=== PATIENT | female | born 1945 | race Caucasian/White ===

== ENCOUNTER → 2016-12-13 | Outpatient (CLI) | payer MEDICARE ==
[2016-12-13 08:54] LABS: Anion Gap 12 mmol/L; Blood Urea Nitrogen 17 mg/dL (7-17); Calcium 9.1 mg/dL (8.4-10.2); Carbon Dioxide 26 mmol/L (22-30); Chloride 103 mmol/L (98-107); Glucose 168 mg/dL (74-99); Non-African American GFR(MDRD) >60 (>60 ml/min/1.73 sqM); Potassium 4.2 mmol/L (3.5-5.1); Sodium 141 mmol/L (137-145)
[2016-12-13 10:57] LABS: Hemoglobin A1C 7.5 % (4.2-6.1)
== END ==
LOC: LABWHC1 08:17
PROVIDERS: ATTEND Internal Medicine
DX: E11.21 Type 2 diabetes mellitus with diabetic nephropathy (principal)
CPT/HCPCS: 36415; 80048; 83036

== ENCOUNTER → 2017-02-25 | Outpatient (CLI) | payer MEDICARE ==
[2017-02-25 09:06] LABS: Anion Gap 15 mmol/L; Blood Urea Nitrogen 18 mg/dL (7-17); Calcium 9.2 mg/dL (8.4-10.2); Carbon Dioxide 23 mmol/L (22-30); Chloride 104 mmol/L (98-107); Glucose 168 mg/dL (74-99); Non-African American GFR(MDRD) >60 (>60 ml/min/1.73 sqM); Sodium 142 mmol/L (137-145)
[2017-02-25 12:11] LABS: Hemoglobin A1C 8.9 % (4.2-6.1)
== END | disposition home or self-care (01) ==
LOC: LABWHC1 07:04
PROVIDERS: ATTEND Internal Medicine
DX: E11.40 Type 2 diabetes mellitus with diabetic neuropathy, unspecified (principal)
CPT/HCPCS: 36415; 80048; 82043; 83036

== ENCOUNTER → 2017-04-27 | Outpatient (CLI) | payer MEDICARE ==
[2017-04-27 08:37] LABS: Anion Gap 14 mmol/L; Blood Urea Nitrogen 13 mg/dL (7-17); Carbon Dioxide 23 mmol/L (22-30); Chloride 104 mmol/L (98-107); Glucose 194 mg/dL (74-99); Non-African American GFR(MDRD) >60 (>60 ml/min/1.73 sqM); Potassium 4.2 mmol/L (3.5-5.1); Sodium 141 mmol/L (137-145)
[2017-04-27 10:24] LABS: Hemoglobin A1C 9.2 % (4.2-6.1)
== END | disposition home or self-care (01) ==
LOC: LABWHC1 08:00
PROVIDERS: ATTEND Internal Medicine
DX: E11.65 Type 2 diabetes mellitus with hyperglycemia (principal)
CPT/HCPCS: 36415; 80048; 83036

== ENCOUNTER → 2017-06-08 | Outpatient (CLI) | payer MEDICARE ==
[2017-06-08 09:32] LABS: Anion Gap 9 mmol/L; Blood Urea Nitrogen 16 mg/dL (7-17); Calcium 9.3 mg/dL (8.4-10.2); Carbon Dioxide 26 mmol/L (22-30); Chloride 105 mmol/L (98-107); Glucose 167 mg/dL (74-99); Non-African American GFR(MDRD) >60 (>60 ml/min/1.73 sqM); Potassium 4.1 mmol/L (3.5-5.1); Sodium 140 mmol/L (137-145)
[2017-06-08 14:44] LABS: Hemoglobin A1C 8.7 % (4.2-6.1)
== END | disposition home or self-care (01) ==
LOC: LABWHC1 08:05
PROVIDERS: ATTEND Internal Medicine
DX: E11.65 Type 2 diabetes mellitus with hyperglycemia (principal)
CPT/HCPCS: 36415; 80048; 83036

== ENCOUNTER → 2017-12-06 | Outpatient (CLI) | payer MEDICARE ==
[2017-12-06 09:20] LABS: Calcium 9.3 mg/dL (8.4-10.2); Potassium 3.8 mmol/L (3.5-5.1)
[2017-12-06 18:57] LABS: Hemoglobin A1C 8.4 % (4.0-6.0)
== END | disposition home or self-care (01) ==
LOC: LABWHC1 08:13
PROVIDERS: ATTEND Internal Medicine
DX: E11.65 Type 2 diabetes mellitus with hyperglycemia (principal)
CPT/HCPCS: 36415; 80048; 82043; 82570; 83036

== ENCOUNTER 2018-06-09 02:00 | Inpatient (IN) | payer MEDICARE ==
[2018-06-09] MEDS ORDERED: ONDANSETRON 4 MG/2 ML VIAL IVP PRN (03:14)
[2018-06-09] MEDS ORDERED: NALOXONE 0.4 MG/ML 1 ML VIAL IV PRN (03:14)
[2018-06-09] MEDS ORDERED: SODIUM CHLORIDE 0.9% 1,000 ML IV SCH (03:15)
--- NOTE | 2018-06-09 03:27 | ED ---
Lower Extremity Injury HPI - General Chief Complaint: Extremity Injury, Lower Stated Complaint: Broken Ankle Time Seen by Provider: 06/09/18 02:48 Source: patient Mode of arrival: wheelchair Limitations: no limitations - History of Present Illness Initial Comments: 73-year-old female patient with past medical history significant for diabetes mellitus presents to the emergency department today as a transfer from [facility] in [place] after sustaining an ankle fracture earlier this afternoon. Patient states that she had a slip and fall on wet pavement which caused her ankle to twist. Patient states that the ankle was dislocated, they did perform conscious sedation with reduction at their facility. Patient is from this area and requested to be transferred here for orthopedic surgery. Patient has been treated by Dr. Beal at [facility] in the past. Patient arrives with a splint to the right ankle. Patient states her pain is currently under control. She denies any numbness or tingling to the foot. Patient denies hitting her head or losing consciousness during the fall. Denies any head, neck , or back pain. Denies any other injuries. Patient denies any chest pain, shortness of breath, dizziness, weakness, abdominal pain, nausea, vomiting, or difficulties with bowel movements or urination. - Related Data Home Medications Medication Instructions Recorded Confirmed Aspirin 81 mg PO DAILY 06/09/18 06/09/18 Atorvastatin [Lipitor] 20 mg PO DAILY 06/09/18 06/09/18 Hydrochlorothiazide 25 mg PO DAILY 06/09/18 06/09/18 Losartan Potassium [Cozaar] 25 mg PO DAILY 06/09/18 06/09/18 Pioglitazone [Actos] 15 mg PO DAILY 06/09/18 06/09/18 metFORMIN HCL [Glucophage] 1,000 mg PO HS 06/09/18 06/09/18 metFORMIN HCL [Glucophage] 500 mg PO DAILY 06/09/18 06/09/18 Allergies Allergy/AdvReac Type Severity Reaction Status Date / Time Corticosteroids Allergy Rapid Verified 06/09/18 02:10 (Glucocorticoids) Heart Rate Review of Systems ROS Statement: Those systems with pertinent positive or pertinent negative responses have been documented in the HPI. ROS Other: All systems not noted in ROS Statement are negative. Past Medical History Past Medical History: Diabetes Mellitus History of Any Multi-Drug Resistant Organisms: None Reported Past Surgical History: Bowel Resection, Orthopedic Surgery Past Psychological History: No Psychological Hx Reported Smoking Status: Never smoker Past Alcohol Use History: None Reported Past Drug Use History: None Reported General Exam Limitations: no limitations General appearance: alert, in no apparent distress, other (This is a well- developed, well-nourished elderly female patient in no acute distress. Vital signs upon presentation are temperature 98.7F, pulse 100, respirations 18, blood pressure 178/87, pulse ox 99% on room air.) Eye exam: Present: normal appearance, PERRL, EOMI. Absent: scleral icterus, conjunctival injection, periorbital swelling ENT exam: Present: normal exam, normal oropharynx, mucous membranes moist Respiratory exam: Present: normal lung sounds bilaterally. Absent: respiratory distress, wheezes, rales, rhonchi, stridor Cardiovascular Exam: Present: regular rate, normal rhythm, normal heart sounds. Absent: systolic murmur, diastolic murmur, rubs, gallop, clicks GI/Abdominal exam: Present: soft, normal bowel sounds. Absent: distended, tenderness, guarding, rebound, rigid Extremities exam: Present: normal capillary refill, other (Patient has posterior and stirrup OCL splint to the right ankle. Toes are pink, warm, and dry. Cap refill is less than 3 seconds. Pedal pulse is 2+. ). Absent: normal inspection, full ROM, tenderness, pedal edema, joint swelling, calf tenderness Neurological exam: Present: alert, oriented X3, CN II-XII intact Psychiatric exam: Present: normal affect, normal mood Skin exam: Present: warm, dry, intact, normal color. Absent: rash Course Vital Signs 06/09/18 02:06 Temperature 98.7 F Pulse Rate 100 Respiratory 18 Rate Blood Pressure 178/87 O2 Sat by Pulse 99 Oximetry Medical Decision Making - Medical Decision Making 73-year-old female patient presented to the emergency department as a transfer from [facility] in [place] for surgical evaluation of right ankle fracture. Upon arrival patient was immobilized in a posterior and stirrup OCL splint. Neurovascular status intact, pain is controlled. Presurgical labs, EKG, and x- ray were obtained. Pain management provided. The patient will be admitted to Dr. Kelsey. Dr. Braxton is put on for medical management. Patient is NPO. Patient is aware of plan and is in agreement. - EKG Data -: EKG Interpreted by Me EKG Comments: EKG obtained at 03 43 shows normal sinus rhythm with a ventricular rate of 90, NJ interval 164, QRS duration 90, QT 318, QTC 389. No evidence of ST elevation or depression. - Radiology Data Radiology results: report reviewed, image reviewed Frontal view of the chest is obtained. Lungs and pleura show mild left basilar atelectasis. No focal consolidation. No pleural effusion or pneumothorax. Heart mediastinum are normal no cardiomegaly. Soft tissues unremarkable. Bones showed no acute fracture. There is degenerative change of the acromioclavicular joint. Upper abdomen is normal. Impression by Dr. Latham shows mild left basilar atelectasis. No acute disease. Images reviewed from outside facility. There does appear to be a comminuted displaced trimalleolar fracture of the right ankle. There does appear to be reduction of the previous ankle dislocation. Disposition Clinical Impression: Closed trimalleolar fracture of right ankle, Dislocation of right ankle joint Disposition: ADMITTED IP TO THIS [facility] Condition: Serious Decision to Admit Reason: Admit from EC Decision Date: 06/09/18 Decision Time: 03:29
--- NOTE | 2018-06-09 03:44 | XR ---
EXAM: XR Chest, 1 View CLINICAL HISTORY: ITS.REASON XR Reason: Pain TECHNIQUE: Frontal view of the chest. COMPARISON: None FINDINGS: Hardware: None. Lungs/pleura: Mild left basilar atelectasis. No focal consolidation. No pleural effusion or pneumothorax. Heart/mediastinum: Normal. No cardiomegaly. Soft tissues: Unremarkable. Bones: No acute fracture. Degenerative changes of the acromioclavicular joint. Upper abdomen: Normal. IMPRESSION: Mild left basilar atelectasis. No acute disease.
[2018-06-09 03:55] LABS: Basophils % (A) 0 %; Eosinophils # (A) 0.1 k/uL (0-0.7); Eosinophils % (A) 1 %; HCT 40.6 % (34.0-46.0); HGB 12.9 gm/dL (11.4-16.0); Lymphocytes # (A) 1.9 k/uL (1.0-4.8); Lymphocytes % (A) 16 %; MCHC 31.7 g/dL (31.0-37.0); MCV 91.5 fL (80.0-100.0); Mean Platelet Volume 7.6; Monocytes # (A) 0.7 k/uL (0-1.0); Monocytes % (A) 6 %; Neutrophils # (A) 8.8 k/uL (1.3-7.7); Neutrophils % (A) 76 %; Platelet Count 262 k/uL (150-450); RBC 4.44 m/uL (3.80-5.40); RDW 13.7 % (11.5-15.5); WBC 11.6 k/uL (3.8-10.6)
[2018-06-09 04:04] LABS: ALT 24 U/L (9-52); AST 25 U/L (14-36); Albumin 3.3 g/dL (3.5-5.0); Alkaline Phosphatase 82 U/L (38-126); Anion Gap 9 mmol/L; Blood Urea Nitrogen 20 mg/dL (7-17); Calcium 8.5 mg/dL (8.4-10.2); Carbon Dioxide 22 mmol/L (22-30); Chloride 105 mmol/L (98-107); Glucose 192 mg/dL (74-99); Potassium 3.7 mmol/L (3.5-5.1); Sodium 136 mmol/L (137-145); Total Bilirubin 0.7 mg/dL (0.2-1.3); Total Protein 5.9 g/dL (6.3-8.2)
[2018-06-09 04:55] VITALS: BMI 39.9
[2018-06-09 04:57] LABS: Appearance,Urine Clear (Clear); Bilirubin,Urine Negative (Negative); Blood,Urine Negative (Negative); Color,Urine Yellow; Glucose,Urine (UA) 3+ (Negative); Leukocyte Esterase,Urine Negative (Negative); Nitrite,Urine Negative (Negative); PH, Urine 5.5 (5.0-8.0); Protein,Urine Trace (Negative); Specific Gravity,Urine 1.023 (1.001-1.035); Urobilinogen,Urine <2.0 mg/dL (<2.0)
[2018-06-09 05:12] LABS: Partial Thromboplastin Time 23.6 sec (22.0-30.0); Prothrombin Time 10.1 sec (9.0-12.0)
[2018-06-09 05:59] LABS: Ketones,Urine 2+ (Negative)
[2018-06-09] MEDS: MORPHINE SULFATE 4 MG/ML SYRINGE IV PRN (06:09)
[2018-06-09] MEDS ORDERED: MELATONIN 5 MG TABLET PO PRN (08:15)
--- NOTE | 2018-06-09 08:25 | P.CONS ---
History of Present Illness - Reason for Consult Consult date: 06/09/18 hypertension Requesting physician: Jaron Kelsey - Chief Complaint ankle pain - History of Present Illness patient is a 73-year-old female with a past medical history of hypertension, type 2 diabetes, dyslipidemia and arthritis who initially presented as a transfer from an outside hospital in [place]. She had been visiting that [facility] She heard a pop and proceeded to the ER. They diagnosed her with a right ankle fracture and stated she would need surgery. She therefore requested to be transferred to our facility due to an existing relationship with Dr. Yudi Beal. and had fallen while trying to get in her vehicle. Patient seen and examined at bedside. Her pain is currently well controlled on the ankle. She denies any chest pain, shortness breath, nausea, vomiting, diarrhea, constipation, dysuria. She is sick or ill at all recently. She not has any recent medication changes. She denies any chest pain, syncope, or significant shortness of breath over the last 6 months. She has not had a history of an MA. Her last stress test was in 2010. She does have some decreased exercise tolerance secondary to our arthritis. She states she would be able to walk up a flight of stairs but would take prolonged time and she would likely need assistance of a cane. She would be able to walk 3 blocks with some difficulty and slowness due to her severe arthritis. She reports that she does not typically get chest pain or winded with these activities but is just slow down from the arthritis. She does not routinely check her blood sugars at home but relies on hemoglobin A1c monitoring. She takes metformin and Actos for her diabetes. Her blood pressure is controlled with Cozaar and hydrochlorothiazide. She does live alone. She was using a cane to help with significant stair use or having to go up and down curbs when outside the house. Review of Systems Pertinent positives and negatives as discussed in HPI, a complete review of systems was performed and all other systems are negative. Past Medical History Past Medical History: Diabetes Mellitus, Hyperlipidemia, Hypertension, Osteoarthritis (OA) Additional Past Medical History / Comment(s): diverticulitis History of Any Multi-Drug Resistant Organisms: None Reported Past Surgical History: Bowel Resection, Orthopedic Surgery Additional Past Surgical History / Comment(s): I'll resection due to diverticulitis, right ankle scope for arthritis, left ankle scope for tendon repair Past Anesthesia/Blood Transfusion Reactions: No Reported Reaction Past Psychological History: No Psychological Hx Reported Smoking Status: Never smoker Past Alcohol Use History: Rare Past Drug Use History: None Reported Additional History: lives alone, uses a cane when ambulating up stairs or curbs outside - Past Family History Mother Additional Family Medical History / Comment(s): Sepsis Father Family Medical History: Cancer, CVA/TIA Medications and Allergies Home Medications Medication Instructions Recorded Confirmed Type Aspirin 81 mg PO DAILY 06/09/18 06/09/18 History Atorvastatin [Lipitor] 20 mg PO DAILY 06/09/18 06/09/18 History Hydrochlorothiazide 25 mg PO DAILY 06/09/18 06/09/18 History Losartan Potassium [Cozaar] 25 mg PO DAILY 06/09/18 06/09/18 History Pioglitazone [Actos] 15 mg PO DAILY 06/09/18 06/09/18 History metFORMIN HCL [Glucophage] 1,000 mg PO HS 06/09/18 06/09/18 History metFORMIN HCL [Glucophage] 500 mg PO DAILY 06/09/18 06/09/18 History Allergies Allergy/AdvReac Type Severity Reaction Status Date / Time Corticosteroids Allergy Rapid Verified 06/09/18 02:10 (Glucocorticoids) Heart Rate Physical Exam Osteopathic Statement: *. No significant issues noted on an osteopathic structural exam other than those noted in the History and Physical/Consult. Vitals: Vital Signs Temp Pulse Pulse Resp BP BP Pulse Ox 06/09/18 07:44 98.4 F 88 16 145/78 95 06/09/18 05:07 93 140/63 06/09/18 03:44 98.3 F 92 18 171/76 97 06/09/18 03:43 98.1 F 93 16 166/81 96 06/09/18 02:06 98.7 F 100 18 178/87 99 Intake and Output 06/08/18 06/09/18 06/09/18 22:59 06:59 14:59 Intake Total 200 Balance 200 Intake: Intake, IV Titration 200 Amount Sodium Chloride 0.9% 1, 200 000 ml @ 50 mls/hr IV . Q20H JOSE RAUL Rx#:[id number] Other: # Voids 1 Weight 115.7 kg General: non toxic, mild distress secondary to pain, appears at stated age, Obese Derm: no unusual rashes/lesions no unusual ecchymoses, warm, dry Head: atraumatic, normocephalic, symmetric Eyes: EOMI, no lid lag, anicteric sclera, pupils equal round reactive to light ENT: Nose and ears atraumatic, no thrush, no pharyngeal erythema Neck: No thyromegaly, no cervical lymphadenopathy, trachea midline, supple Mouth: no lip lesion, mucus membranes moist Cardiovascular: S1S2 reg, no murmur, positive posterior tibial pulse bilateral, no edema, capillary refill less than 2 seconds Lungs: Decreased breath sounds bilateral bases, no rhonchi, no rales , no accessory muscle use Abdominal: soft, nontender to palpation, no guarding, no appreciable organomegaly, normal bowel sounds Ext: no gross muscle atrophy, muscle strength 5 out of 5 in bilateral upper extremities grossly, no contractures, Neuro: CN II-XI grossly intact, light touch intact all 4 extremities, finger to nose within normal limits, Psych: Alert, oriented, appropriate affect Results CBC & Chem 7: 06/09/18 03:42 06/09/18 03:42 Labs: Abnormal Lab Results - Last 24 Hours (Table) 06/09/18 06/09/18 06/09/18 Range/Units 03:42 03:42 04:25 WBC 11.6 H (3.8-10.6) k/uL Neutrophils # 8.8 H (1.3-7.7) k/uL Sodium 136 L (137-145) mmol/L BUN 20 H (7-17) mg/dL Glucose 192 H (74-99) mg/dL Total Protein 5.9 L (6.3-8.2) g/dL Albumin 3.3 L (3.5-5.0) g/dL Urine Protein Trace H (Negative) Urine Glucose (UA) 3+ H (Negative) Urine Ketones 2+ H (Negative) Comments: EKG is reviewed by myself reveals normal sinus rhythm at a rate of 90, normal intervals, normal axis, and no significant ST-T wave changes Assessment and Plan Assessment: Right ankle fracture -Orthopedic management -Pain control -Bed rest until evaluated by Ortho Evaluation Patient is at an acceptable risk for surgical procedure on the ankle. Almaguer risk sore is 0.9%. No further testing needed prior to surgery. DM 2, uncontrolled - SSI - hold metformin and actos - await A1C, last A1c in march 2018 was 8.7 no changes made per patient at that time - follow BS HTN urgency on arrival resolved with pain control - conitnue home HCTZ and cozaar - follow BP HLD - Statin Morbid obesity, BMI 39.9 - structured outpatient weight loss. High risk for need for inpatient admission are: uncontrolled diabetes A1C 8.7, HTN, Morbid obesity, age of 83, prior need for cane use, and polypharmacy with multiple home medication, and living alone. DVT prophylaxis: SCDs Discussed with: Patient, daughter. Daughter Omayra surrogate decision maker A total of [60] minutes was spent on the care of this complex patient more than 50% of the time was spent in counseling and care coordination.
[2018-06-09 08:35] LABS: Glucose,Whole Blood 159 mg/dL (75-99)
[2018-06-09] MEDS: HYDROCHLOROTHIAZIDE 25 MG TAB PO SCH (08:57)
[2018-06-09] MEDS: LOSARTAN 25 MG TAB PO SCH (08:57)
[2018-06-09] MEDS ORDERED: metFORMIN 500 MG TAB PO SCH ×2 (09:00→21:00)
[2018-06-09] MEDS ORDERED: PIOGLITAZONE 15 MG TAB PO SCH (09:00)
[2018-06-09] MEDS: INSULIN ASPART 100 UNIT/ML 1 ML 10 ML VIAL SQ SCH ×4 (09:01→21:05)
[2018-06-09] MEDS: SODIUM CHLORIDE 0.9% 1,000 ML IV SCH ×2 (09:05→18:09)
--- NOTE | 2018-06-09 10:01 | P.HPOR ---
History of Present Illness H&P Date: 06/09/18 Chief Complaint: Right ankle trimalleolar fracture. The patient is a pleasant 73-year-old female who presented to the emergency department at [facility] after sustaining a fall and injury to her right ankle. The patient does live locally but was down in [place] visiting. She states that she was trying to get into her car and slipped due to the rain and had immediate right ankle pain. She states that she did hear a couple pops in her ankle during the injury and her foot was turned a different way. She was taken to a emergency department in [place] and her ankle was reduced under anesthesia. A splint was placed and she traveled home via private vehicle yesterday. The patient's daughter is at the bedside today. She was told that she needed surgery and preferred to come back home for surgical treatment. The patient is a previous patient of Dr. Beal. She was admitted for pain control and possible rehab placement as the patient does live alone. She denies any other injuries sustained in the fall. She denies head injury. Today, the patient states that her ankle pain is better controlled than yesterday. She denies fever, chills, rigors, shortness breath, chest pain and abdominal pain today. The patient does have a history of diabetes, hyperlipidemia, hypertension, and osteoarthritis. The patient does take oral medications for her diabetes. Review of Systems Constitutional: Denies chills, Denies fatigue, Denies fever Cardiovascular: Denies chest pain, Denies shortness of breath Respiratory: Denies cough Gastrointestinal: Denies diarrhea, Denies nausea, Denies vomiting Musculoskeletal: right: ankle pain, ankle stiffness, ankle swelling Neurological: Denies head injury Past Medical History Past Medical History: Diabetes Mellitus, Hyperlipidemia, Hypertension, Osteoarthritis (OA) Additional Past Medical History / Comment(s): diverticulitis History of Any Multi-Drug Resistant Organisms: None Reported Past Surgical History: Bowel Resection, Orthopedic Surgery Additional Past Surgical History / Comment(s): I'll resection due to diverticulitis, right ankle scope for arthritis, left ankle scope for tendon repair Past Anesthesia/Blood Transfusion Reactions: No Reported Reaction Past Psychological History: No Psychological Hx Reported Smoking Status: Never smoker Past Alcohol Use History: Rare Past Drug Use History: None Reported - Past Family History Mother Additional Family Medical History / Comment(s): Sepsis Father Family Medical History: Cancer, CVA/TIA Medications and Allergies Home Medications Medication Instructions Recorded Confirmed Type Aspirin 81 mg PO DAILY 06/09/18 06/09/18 History Atorvastatin [Lipitor] 20 mg PO DAILY 06/09/18 06/09/18 History Hydrochlorothiazide 25 mg PO DAILY 06/09/18 06/09/18 History Losartan Potassium [Cozaar] 25 mg PO DAILY 06/09/18 06/09/18 History Pioglitazone [Actos] 15 mg PO DAILY 06/09/18 06/09/18 History metFORMIN HCL [Glucophage] 1,000 mg PO HS 06/09/18 06/09/18 History metFORMIN HCL [Glucophage] 500 mg PO DAILY 06/09/18 06/09/18 History Allergies Allergy/AdvReac Type Severity Reaction Status Date / Time Corticosteroids Allergy Rapid Verified 06/09/18 02:10 (Glucocorticoids) Heart Rate Physical Examination The patient is a 73-year-old female who is in no acute distress. She is alert and oriented 3. Exam of the patient's head is normocephalic and atraumatic. No pain to palpation to the cervical spine and no step-offs noted. No obvious deformities to her bilateral upper extremities and no pain upon range of motion. Exam of the left lower extremity reveals no obvious deformity or pain upon range of motion. Exam of the right lower extremity reveals a splint to the right foot and ankle. The patient is able to wiggle her toes freely. Splint was removed and there is a small abrasion to the anteriolateral aspect of the ankle. No signs or symptoms of infection noted. No other skin breakdown or wounds noted. There is ecchymosis present. Mild swelling noted to the ankle. Calf is soft and nontender. Neurological and circulatory status is intact. Results - Labs Labs: Abnormal Lab Results - Last 24 Hours (Table) 06/09/18 06/09/18 06/09/18 Range/Units 03:42 03:42 04:25 WBC 11.6 H (3.8-10.6) k/uL Neutrophils # 8.8 H (1.3-7.7) k/uL Sodium 136 L (137-145) mmol/L BUN 20 H (7-17) mg/dL Glucose 192 H (74-99) mg/dL POC Glucose (mg/dL) (75-99) mg/dL Total Protein 5.9 L (6.3-8.2) g/dL Albumin 3.3 L (3.5-5.0) g/dL Urine Protein Trace H (Negative) Urine Glucose (UA) 3+ H (Negative) Urine Ketones 2+ H (Negative) 06/09/18 Range/Units 08:34 WBC (3.8-10.6) k/uL Neutrophils # (1.3-7.7) k/uL Sodium (137-145) mmol/L BUN (7-17) mg/dL Glucose (74-99) mg/dL POC Glucose (mg/dL) 159 H (75-99) mg/dL Total Protein (6.3-8.2) g/dL Albumin (3.5-5.0) g/dL Urine Protein (Negative) Urine Glucose (UA) (Negative) Urine Ketones (Negative) H & H 06/09/18 Range/Units 03:42 Hgb 12.9 (11.4-16.0) gm/dL Hct 40.6 (34.0-46.0) % Coagulation 06/09/18 Range/Units 04:49 INR 1.0 (<1.2) Result Diagrams: 06/09/18 03:42 06/09/18 03:42 - Diagnostic results Ankle/Foot x-ray: image reviewed Ankle/Foot CT: image reviewed (Outside CT of the right ankle dated 06/08/2018 reveals a displaced distal fibula fracture, a minimally displaced medial malleolus and a displaced posterior tibia fragment also.) Assessment and Plan (1) Fall Current Visit: Yes Status: Acute Code(s): W19.XXXA - UNSPECIFIED FALL, INITIAL ENCOUNTER SNOMED Code(s): 2108723 (2) Closed trimalleolar fracture of right ankle Current Visit: Yes Status: Acute Code(s): S82.851A - DISPLACED TRIMALLEOLAR FRACTURE OF RIGHT LOWER LEG, INIT SNOMED Code(s): 5333188 (3) Dislocation of right ankle joint Current Visit: Yes Status: Acute Code(s): S93.04XA - DISLOCATION OF RIGHT ANKLE JOINT, INITIAL ENCOUNTER SNOMED Code(s): 990075512 Plan: The clinical and x-ray findings were discussed with the patient and the patient' s daughter. The case was also discussed with Dr. Kelsey. The patient's splint was changed to a well-padded splint today. The patient was encouraged to ice and elevate the right ankle as much as possible. She will remain nonweightbearing. Surgical intervention is recommended but after a period of 1- 2 weeks to allow for swelling to improve. She was cleared by internal medicine for surgery. The patient will most likely need rehab placement before surgery upon discharge from the hospital. We will continue to follow the patient closely and make surgery recommendations as needed.
[2018-06-09 11:58] LABS: Glucose,Whole Blood 124 mg/dL (75-99)
[2018-06-09] MEDS: ATORVASTATIN 20 MG TAB PO SCH (12:22)
[2018-06-09 16:51] LABS: Hemoglobin A1C 9.1 % (4.0-6.0)
[2018-06-09 17:29] LABS: Glucose,Whole Blood 166 mg/dL (75-99)
[2018-06-09 19:23] LABS: Glucose,Whole Blood 201 mg/dL (75-99)
--- NOTE | 2018-06-09 19:42 | XR ---
EXAMINATION TYPE: XR ankle complete RT DATE OF EXAM: 06/09/2018 COMPARISON: Yesterday HISTORY: Post reduction TECHNIQUE: 4 views FINDINGS: There is a trimalleolar fracture of the right ankle. There is posterior subluxation of the talus on the lateral view. There is 1 cm separation of the posterior malleolus chip fracture. Detail is limited by the cast. There is narrowing of the ankle joint space. There are moderate plantar and A chilles calcaneal spurs. IMPRESSION: Trimalleolar fracture with new posterior subluxation of the talus on the lateral view com pared to exam yesterday. Posterior malleolus chip fracture shows more separation than yesterday.
[2018-06-09 21:02] LABS: Glucose,Whole Blood 250 mg/dL (75-99)
[2018-06-10 07:22] LABS: Glucose,Whole Blood 167 mg/dL (75-99)
[2018-06-10 07:43] LABS: HCT 35.6 % (34.0-46.0); HGB 11.6 gm/dL (11.4-16.0); MCH 29.8 pg (25.0-35.0); MCHC 32.6 g/dL (31.0-37.0); MCV 91.5 fL (80.0-100.0); Mean Platelet Volume 7.6; Platelet Count 205 k/uL (150-450); RBC 3.89 m/uL (3.80-5.40); RDW 13.5 % (11.5-15.5); WBC 9.7 k/uL (3.8-10.6)
[2018-06-10 07:54] LABS: Anion Gap 8 mmol/L; Blood Urea Nitrogen 10 mg/dL (7-17); Calcium 8.2 mg/dL (8.4-10.2); Carbon Dioxide 25 mmol/L (22-30); Chloride 106 mmol/L (98-107); Glucose 139 mg/dL (74-99); Potassium 3.4 mmol/L (3.5-5.1); Sodium 139 mmol/L (137-145)
[2018-06-10] MEDS ORDERED: PROPOFOL 10 MG/ML 20 ML VIAL IV ONE (07:58)
[2018-06-10] MEDS ORDERED: fentaNYL (PF) 50 MCG/ML 2 ML AMP ONE (07:58)
[2018-06-10] MEDS ORDERED: MIDAZOLAM 2 MG/2 ML VIAL ONE (07:58)
[2018-06-10] MEDS ORDERED: IV FLUID CONTINUATION 1,000 ML IV ONE (07:58)
[2018-06-10] MEDS ORDERED: LACTATED RINGERS 1,000 ML IV ONE (08:19)
[2018-06-10] MEDS ORDERED: SODIUM CHLORIDE 0.9% 100 ML with ceFAZolin 2,000 MG IV ONE ×2 (08:25)
[2018-06-10] MEDS: INSULIN ASPART 100 UNIT/ML 1 ML 10 ML VIAL SQ SCH ×4 (09:18→20:51)
[2018-06-10] MEDS: LOSARTAN 25 MG TAB PO SCH (09:18)
[2018-06-10] MEDS: HYDROCHLOROTHIAZIDE 25 MG TAB PO SCH (09:18)
[2018-06-10] MEDS: ATORVASTATIN 20 MG TAB PO SCH (09:18)
[2018-06-10 09:37] LABS: Glucose,Whole Blood 154 mg/dL (75-99)
--- NOTE | 2018-06-10 09:41 | FL ---
FLUOROSCOPY 2 minutes and 17 seconds of fluoroscopy time were utilized during internal fixation of the right ankl e. 7 images document the procedure.
--- NOTE | 2018-06-10 09:49 | P.OP ---
Date of Procedure: 06/10/18 Preoperative Diagnosis: 1. Right trimalleolar ankle fracture dislocation 2. Type 2 diabetes 3. Osteoporosis 4. BMI of 39.9 Postoperative Diagnosis: Same Procedure(s) Performed: 1. Closed reduction right ankle fracture dislocation and application of ankle spanning external fixator as part of a staged procedure Anesthesia: spinal Surgeon: Jaron Kelsey Terra Cotta Setter #1: Diana Rosa Estimated Blood Loss (ml): 10 IV fluids (ml): 500 Pathology: none sent Condition: stable Disposition: PACU Indications for Procedure: The patient is a 73-year-old female with multiple medical problems including morbid obesity and type 2 diabetes who sustained a fall in [place] resulting in a closed right ankle injury. She was seen at an [facility] emergency department where closed reduction and splinting was performed. She was transferred back home to [facility] for definitive treatment. On examination after being transferred she had a poorly fitting splint and there was concern for breakdown of the skin. She underwent a closed reduction and splinting on the floor. X-rays showed persistent posterior subluxation of the talus following application of the splint. I recommended return to the operating room for a closed reduction versus application of an ankle spanning external fixator. We discussed the potential risks and complications of surgery including but not limited to risk of anesthesia, risk of superficial infection, risk of deep infection, risk of damage to local blood vessels or nerves, risk of pin site infection, risk of intraoperative fracture, risk of postoperative fracture, risk of malreduction, risk of DVT risk of PE and other complications. The patient understands that she is at an increased risk of having complications due to her multiple medical issues. She also understands that she will need to go definitive treatment with an open reduction internal fixation and removal of the external fixator once her soft tissue swelling resolves. Right her consent to go forward with surgery. Operative Findings: The patient had a grossly unstable ankle fracture that was not amenable to closed reduction and splinting. I elected to go forward with an ankle spanning external fixator placement. Description of Procedure: The patient was identified in preoperative holding and the correct right lower extremity was marked with my initials. I reviewed the consent with the patient and all of her questions were answered. The patient was then brought back to the operating room and given a spinal anesthetic by anesthesia. The right leg was prepped and draped in the standard sterile fashion. Prior to starting surgery timeout was performed identifying the correct patient, operative extremity, and procedure. I began by making a stab incision over the medial aspect of the calcaneus with a 15 blade scalpel. Dissection was carried down carefully to the calcaneus with a hemostat. A 2.5 mm drill bit was used to create a path through the posterior inferior aspect of the posterior tuberosity of the calcaneus. A centrally threaded 7 mm Steinmann pin was placed by hand through the calcaneus. Attention was then turned proximally. A stab incision was made over the anterior aspect of the tibia. A 2.5 mm drill bit was used to create a path just medial to the apex of the tibia. A partially threaded 5 mm Steinmann pin was placed by hand. This was repeated on the tibia and a second partially threaded 5 mm Steinmann pin was placed by hand. Pin-to-bar clamps were placed on all the Steinmann pins followed by rods both medially and laterally. The ankle was reduced and gently distracted. C-arm fluoroscopy was used to verify reduction of the ankle in both the AP and lateral planes. An contract administrative assistant tightened all of the clamps. Sterile dressings were applied over the pin sites with Betadine soaked sponges. The leg was overwrapped with web roll. Bulky soft cotton was placed posteriorly over the leg followed by plaster to keep the ankle at neutral. I verified that all instrument, sponge, and sharp counts were correct. The patient was then transferred from the OR table to a gurney and brought to PACU having tolerated the procedure well. Diana Rosa PA-C was required is a skilled contract administrative assistant for patient positioning, placement of external fixator, reduction of fracture, and application of dressing. Plan: The patient is going to discharge to rehab on Tuesday. She will follow up with me in the office later next week to discuss surgery in 7-10 days.
--- NOTE | 2018-06-10 10:01 | XR ---
FLUOROSCOPY 2 minutes and 17 seconds of fluoroscopy time were utilized during internal fixation of the right ankl e.. 8 images document the procedure.
[2018-06-10] MEDS: SODIUM CHLORIDE 0.9% 1,000 ML IV SCH (10:21)
[2018-06-10] MEDS: HYDROcodone/APAP 5-325MG 1 EACH TAB PO PRN ×2 (11:55→18:23)
[2018-06-10 12:35] LABS: Glucose,Whole Blood 139 mg/dL (75-99)
--- NOTE | 2018-06-10 12:54 | P.PN ---
Subjective Progress Note Date: 06/10/18 Principal diagnosis: right ankle pain Patient is a 73-year-old female with a past medical history of hypertension, type 2 diabetes, dyslipidemia and arthritis who initially presented as a transfer from an outside hospital in [place]. She had been visiting [place] [facility] and had fallen while trying to get in her vehicle. She heard a pop and proceeded to the ER. They diagnosed her with a right ankle fracture and stated she would need surgery. She therefore requested to be transferred to our facility due to an existing relationship with Dr. White and Dr. Beal. She was seen by Dr. Kelsey and went for closed reduction with external fixation on the morning of 06/10/80 Patient seen and examined at bedside. No chest pain, shortness of breath, nausea, or vomiting after surgery. Her pain is currently well controlled. She states that Dr. Kelsey told her she will need to go to half-way facility on discharge with planned readmission for definitive fixation. She would like to go to [facility] if possible. Patient does live at home home alone. She is at high risk if discharged home without adequate vision and she currently needs to be nonweightbearing and has an external fixator. Objective - Vital Signs Vital signs: Vital Signs Temp 97.0 F L 06/10/18 09:30 Pulse 84 06/10/18 10:00 Resp 16 06/10/18 10:00 BP 150/79 06/10/18 10:00 Pulse Ox 95 06/10/18 10:00 Intake & Output 06/09/18 06/10/18 06/10/18 18:59 06:59 18:59 Intake Total 1320 900 Output Total 10 Balance 1320 890 Weight 115.7 kg Intake: IV 900 Intake, IV Titration 480 Amount Sodium Chloride 0.9% 1, 480 000 ml @ 50 mls/hr IV . Q20H JOSE RAUL Rx#:[id number] Oral 840 Output: Estimated Blood Loss 10 Other: Voiding Method Bedside Commode Bedside Commode # Voids 3 2 2 - Exam General: non toxic, no distress, appears at stated age, obese Derm: warm, dry Head: atraumatic, normocephalic, symmetric Eyes: EOMI, no lid lag, anicteric sclera Mouth: no lip lesion, mucus membranes moist Cardiovascular: S1S2 reg, no murmur, positive posterior tibial pulse bilateral, Lungs: CTA bilateral, no rhonchi, no rales , no accessory muscle use Abdominal: soft, nontender to palpation, no guarding, no appreciable organomegaly Ext: no gross muscle atrophy, no edema, no contractures, right ankle with wrapping an external fixator in place. Neuro: CN II-XI grossly intact, no focal neuro deficits Psych: Alert, oriented, appropriate affect - Labs CBC & Chem 7: 06/10/18 06:37 06/10/18 06:37 Labs: Abnormal Lab Results - Last 24 Hours (Table) 06/09/18 06/09/18 06/09/18 Range/Units 03:42 17:22 19:21 Potassium (3.5-5.1) mmol/L Glucose (74-99) mg/dL POC Glucose (mg/dL) 166 H 201 H (75-99) mg/dL Hemoglobin A1c 9.1 H (4.0-6.0) % Calcium (8.4-10.2) mg/dL 06/09/18 06/10/18 06/10/18 Range/Units 21:00 06:37 07:21 Potassium 3.4 L (3.5-5.1) mmol/L Glucose 139 H (74-99) mg/dL POC Glucose (mg/dL) 250 H 167 H (75-99) mg/dL Hemoglobin A1c (4.0-6.0) % Calcium 8.2 L (8.4-10.2) mg/dL 06/10/18 Range/Units 09:34 Potassium (3.5-5.1) mmol/L Glucose (74-99) mg/dL POC Glucose (mg/dL) 154 H (75-99) mg/dL Hemoglobin A1c (4.0-6.0) % Calcium (8.4-10.2) mg/dL Assessment and Plan Assessment: Right ankle fracture s/p closed reduction and external fixation -Orthopedic recommendations, NWB -Will need definitive repair with planned readmission. DM 2, uncontrolled - SSI - hold metformin and actos, suggest increased overage at d/c. - A1C 9.1 - follow BS HTN urgency on arrival resolved with pain control - conitnue home HCTZ and cozaar - follow BP HLD - Statin Morbid obesity, BMI 39.9 - structured outpatient weight loss. High risk for need for inpatient admission are: uncontrolled diabetes A1C 8.7, HTN, Morbid obesity, age of 83, prior need for cane use, and polypharmacy with multiple home medication, and living alone. Plan discharge to SNF as patient lives alone, high risk for falls DVT prophylaxis: SCDs Discussed with: Patient, daughter. A total of 25 minutes was spent on the care of this complex patient more than 50 % of the time was spent in counseling and care coordination.
[2018-06-10] MEDS: MORPHINE SULFATE 4 MG/ML SYRINGE IV PRN (14:11)
[2018-06-10] MEDS ORDERED: KETOROLAC 30 MG/ML 1 ML VIAL IVP STA (15:02)
[2018-06-10 18:26] LABS: Glucose,Whole Blood 224 mg/dL (75-99)
[2018-06-10 20:43] LABS: Glucose,Whole Blood 247 mg/dL (75-99)
[2018-06-10] MEDS: KETOROLAC 30 MG/ML 1 ML VIAL IVP PRN (20:51)
[2018-06-11 06:59] LABS: Glucose,Whole Blood 179 mg/dL (75-99)
[2018-06-11] MEDS: HYDROCHLOROTHIAZIDE 25 MG TAB PO SCH (07:50)
[2018-06-11] MEDS: INSULIN ASPART 100 UNIT/ML 1 ML 10 ML VIAL SQ SCH ×4 (07:50→21:17)
[2018-06-11] MEDS: ATORVASTATIN 20 MG TAB PO SCH (07:50)
[2018-06-11] MEDS: LOSARTAN 25 MG TAB PO SCH (07:50)
[2018-06-11] MEDS: DOCUSATE 100 MG CAP PO PRN (07:58)
--- NOTE | 2018-06-11 08:54 | P.PN ---
Subjective Progress Note Date: 06/11/18 Principal diagnosis: Trimalleolar fracture dislocation right ankle. This is a 73-year-old female who is status post close reduction with application of external fixator right ankle. The patient had pain control issues yesterday but is improved today. She has no new complaints or concerns today. Vital signs are stable. Objective - Vital Signs Vital signs: Vital Signs Temp 98.9 F 06/11/18 00:00 Pulse 89 06/11/18 00:00 Resp 16 06/11/18 00:30 BP 149/78 06/11/18 00:00 Pulse Ox 97 06/11/18 00:00 Intake & Output 06/10/18 06/11/18 06/11/18 18:59 06:59 18:59 Intake Total 900 1330 Output Total 10 Balance 890 1330 Weight 115.7 kg Intake: IV 900 Intake, IV Titration 400 Amount Sodium Chloride 0.9% 1, 400 000 ml @ 125 mls/hr IV . Q8H JOSE RAUL Rx#:[id number] Oral 930 Output: Estimated Blood Loss 10 Other: Voiding Method Bedside Commode Bedside Commode # Voids 2 4 - Exam This is a pleasant 73-year-old female in no acute distress. She is alert and oriented 3. Exam of the right lower extremity reveals that her external fixator and splint are intact. There is some bloody drainage about the lateral aspect of leg in the area of the proximal pins. She has full toe motion with good sensation to the toes. Capillary refills less than 3 seconds. - Labs CBC & Chem 7: 06/10/18 06:37 06/10/18 06:37 Labs: Abnormal Lab Results - Last 24 Hours (Table) 06/09/18 06/10/18 06/10/18 Range/Units 03:42 09:34 12:34 POC Glucose (mg/dL) 154 H 139 H (75-99) mg/dL Hemoglobin A1c 9.1 H (4.0-6.0) % 06/10/18 06/10/18 06/11/18 Range/Units 18:24 20:40 06:57 POC Glucose (mg/dL) 224 H 247 H 179 H (75-99) mg/dL Hemoglobin A1c (4.0-6.0) % Assessment and Plan (1) Closed trimalleolar fracture of right ankle Current Visit: Yes Status: Acute Code(s): S82.851A - DISPLACED TRIMALLEOLAR FRACTURE OF RIGHT LOWER LEG, INIT SNOMED Code(s): 2639573 (2) Dislocation of right ankle joint Current Visit: Yes Status: Acute Code(s): S93.04XA - DISLOCATION OF RIGHT ANKLE JOINT, INITIAL ENCOUNTER SNOMED Code(s): 261832414 (3) Fall Current Visit: Yes Status: Acute Code(s): W19.XXXA - UNSPECIFIED FALL, INITIAL ENCOUNTER SNOMED Code(s): 9922707 Plan: The clinical findings are discussed with the patient. We're planning discharge to inpatient rehab then return for open reduction internal fixation of the right ankle once swelling is resolved.
[2018-06-11 09:39] LABS: HCT 35.6 % (34.0-46.0); HGB 11.9 gm/dL (11.4-16.0); MCHC 33.4 g/dL (31.0-37.0); MCV 89.7 fL (80.0-100.0); Mean Platelet Volume 7.1; Platelet Count 224 k/uL (150-450); RBC 3.97 m/uL (3.80-5.40); RDW 13.6 % (11.5-15.5); WBC 10.8 k/uL (3.8-10.6)
--- NOTE | 2018-06-11 10:20 | P.PN ---
Subjective Progress Note Date: 06/11/18 Principal diagnosis: right ankle pain Patient is a 73-year-old female with a past medical history of hypertension, type 2 diabetes, dyslipidemia and arthritis who initially presented as a transfer from an outside hospital in [place]. She had been visiting [facility] and had fallen while trying to get in her vehicle. She heard a pop and proceeded to the ER. They diagnosed her with a right ankle fracture and stated she would need surgery. She therefore requested to be transferred to our facility due to an existing relationship with Dr. White and Dr. Beal. She was seen by Dr. Kelsey and went for closed reduction with external fixation on the morning of 06/10/18. She has tolerated the procedure well. Patient seen and examined at bedside. No chest pain, SOB, nausea, vomiting. Pain well controlled. Long discussion regardin A1C of 9.1 with fracture and ext fix with need for further surgery. Will start long acting insulin and hold oral medications. Objective - Vital Signs Vital signs: Vital Signs Temp 98.9 F 06/11/18 00:00 Pulse 89 06/11/18 00:00 Resp 16 06/11/18 00:30 BP 149/78 06/11/18 00:00 Pulse Ox 97 06/11/18 00:00 Intake & Output 06/10/18 06/11/18 06/11/18 18:59 06:59 18:59 Intake Total 900 1330 222 Output Total 10 Balance 890 1330 222 Weight 115.7 kg Intake: IV 900 Intake, IV Titration 400 Amount Sodium Chloride 0.9% 1, 400 000 ml @ 125 mls/hr IV . Q8H [facility] Rx#:[id number] Oral 930 222 Output: Estimated Blood Loss 10 Other: Voiding Method Bedside Commode Bedside Commode # Voids 2 4 - Exam General: non toxic, no distress, appears at stated age, obese Derm: warm, dry Head: atraumatic, normocephalic, symmetric Eyes: EOMI, no lid lag, anicteric sclera Mouth: no lip lesion, mucus membranes moist Cardiovascular: S1S2 reg, no murmur, positive posterior tibial pulse bilateral, Lungs:decreased bs b/l bases, no rhonchi, no rales , no accessory muscle use Abdominal: soft, nontender to palpation, no guarding, no appreciable organomegaly Ext: no gross muscle atrophy, no edema, no contractures, right ankle with wrapping an external fixator in place. Neuro: CN II-XI grossly intact, no focal neuro deficits Psych: Alert, oriented, appropriate affect - Labs CBC & Chem 7: 06/11/18 09:00 06/10/18 06:37 Labs: Abnormal Lab Results - Last 24 Hours (Table) 06/10/18 06/10/18 06/10/18 Range/Units 12:34 18:24 20:40 WBC (3.8-10.6) k/uL POC Glucose (mg/dL) 139 H 224 H 247 H (75-99) mg/dL 06/11/18 06/11/18 Range/Units 06:57 09:00 WBC 10.8 H (3.8-10.6) k/uL POC Glucose (mg/dL) 179 H (75-99) mg/dL Assessment and Plan Assessment: Right ankle fracture s/p closed reduction and external fixation -Orthopedic recommendations, NWB -Will need definitive repair with planned readmission. DM 2, uncontrolled - SSI, start levemir 12 units tonight, add 2 am blood sugar check. - hold metformin and actos plan on discharge to SNF on basal bolus. Has tried multiple oral medications with various symptoms. - DM educator consult. - A1C 9.1 - follow BS HTN urgency on arrival resolved with pain control - conitnue home HCTZ and cozaar - follow BP Morbid obesity, BMI 39.9 - structured outpatient weight loss. HLD - Statin DVT prophylaxis: SCDs Discussed with: Patient, daughter. A total of 27 minutes was spent on the care of this complex patient more than 50 % of the time was spent in counseling and care coordination.
[2018-06-11] MEDS: KETOROLAC 30 MG/ML 1 ML VIAL IVP PRN ×2 (11:33→21:18)
[2018-06-11 12:03] LABS: Glucose,Whole Blood 191 mg/dL (75-99)
[2018-06-11] MEDS: SODIUM CHLORIDE 0.9% 1,000 ML IV SCH ×2 (14:19→14:20)
[2018-06-11 17:06] LABS: Glucose,Whole Blood 252 mg/dL (75-99)
[2018-06-11] MEDS ORDERED: INSULIN DETEMIR 100 UNIT/ML 10 ML VIAL SQ SCH (21:00)
[2018-06-11 21:06] LABS: Glucose,Whole Blood 205 mg/dL (75-99)
[2018-06-12 00:57] LABS: Glucose,Whole Blood 146 mg/dL (75-99)
[2018-06-12 06:49] LABS: Glucose,Whole Blood 127 mg/dL (75-99)
[2018-06-12] MEDS: INSULIN ASPART 100 UNIT/ML 1 ML 10 ML VIAL SQ SCH ×4 (07:25→21:03)
[2018-06-12 08:06] LABS: HCT 35.4 % (34.0-46.0); HGB 11.7 gm/dL (11.4-16.0); MCH 29.8 pg (25.0-35.0); MCHC 33.1 g/dL (31.0-37.0); MCV 89.8 fL (80.0-100.0); Mean Platelet Volume 7.2; Platelet Count 244 k/uL (150-450); RBC 3.94 m/uL (3.80-5.40); RDW 13.4 % (11.5-15.5); WBC 9.7 k/uL (3.8-10.6)
[2018-06-12 08:25] LABS: Anion Gap 8 mmol/L; Blood Urea Nitrogen 13 mg/dL (7-17); Calcium 8.3 mg/dL (8.4-10.2); Carbon Dioxide 28 mmol/L (22-30); Chloride 105 mmol/L (98-107); Glucose 131 mg/dL (74-99); Potassium 3.2 mmol/L (3.5-5.1); Sodium 141 mmol/L (137-145)
[2018-06-12] MEDS ORDERED: POLYETHYLENE GLYCOL 3350 17 GM POWD.PACK PO STA (08:50)
[2018-06-12] MEDS ORDERED: BISACODYL 10 MG SUPP RECTAL PRN (08:50)
--- NOTE | 2018-06-12 09:13 | P.PN ---
Subjective Progress Note Date: 06/12/18 Principal diagnosis: right ankle pain Patient is a 73-year-old female with a past medical history of hypertension, type 2 diabetes, dyslipidemia and arthritis who initially presented as a transfer from an outside hospital in [place]. She had been visiting [facility] and had fallen while trying to get in her vehicle. She heard a pop and proceeded to the ER. They diagnosed her with a right ankle fracture and stated she would need surgery. She therefore requested to be transferred to our facility due to an existing relationship with Dr. White and Dr. Beal. She was seen by Dr. Kelsey and went for closed reduction with external fixation on the morning of 06/10/18. She has tolerated the procedure well. Sugars better controlled with start of Levemir Patient seen and examined at bedside. Had 1 episode 2 hours after levemir dose of just sweating BS was checked at 2 am and was 147. No chest pain, sob, nausea. leg is slightly more painful today but was more active yesterday. Also complains of constipation with no BM in 5 days. Objective - Vital Signs Vital signs: Vital Signs Temp 98.8 F 06/11/18 19:00 Pulse 92 06/11/18 19:55 Resp 16 06/12/18 00:30 BP 148/96 06/11/18 19:00 Pulse Ox 97 06/11/18 19:00 Intake & Output 06/11/18 06/12/18 06/12/18 18:59 06:59 18:59 Intake Total 222 1360 Output Total 1950 Balance -1728 1360 Intake: Oral 222 1360 Output: Urine 1950 Other: Voiding Method Bedside Commode # Voids 2 - Exam General: non toxic, no distress, appears at stated age, obese Derm: warm, dry Head: atraumatic, normocephalic, symmetric Eyes: EOMI, no lid lag, anicteric sclera Mouth: no lip lesion, mucus membranes moist Cardiovascular: S1S2 reg, no murmur, positive posterior tibial pulse bilateral, Lungs: CTA b/l, no rhonchi, no rales , no accessory muscle use Abdominal: soft, nontender to palpation, no guarding, no appreciable organomegaly Ext: no gross muscle atrophy, no edema, no contractures, right ankle with wrapping an external fixator in place. Neuro: CN II-XI grossly intact, no focal neuro deficits Psych: Alert, oriented, appropriate affect - Labs CBC & Chem 7: 06/12/18 07:31 06/12/18 07:31 Labs: Abnormal Lab Results - Last 24 Hours (Table) 06/11/18 06/11/18 06/11/18 Range/Units 09:00 12:02 17:04 WBC 10.8 H (3.8-10.6) k/uL Potassium (3.5-5.1) mmol/L Glucose (74-99) mg/dL POC Glucose (mg/dL) 191 H 252 H (75-99) mg/dL Calcium (8.4-10.2) mg/dL 06/11/18 06/12/18 06/12/18 Range/Units 21:04 00:54 06:48 WBC (3.8-10.6) k/uL Potassium (3.5-5.1) mmol/L Glucose (74-99) mg/dL POC Glucose (mg/dL) 205 H 146 H 127 H (75-99) mg/dL Calcium (8.4-10.2) mg/dL 06/12/18 Range/Units 07:31 WBC (3.8-10.6) k/uL Potassium 3.2 L (3.5-5.1) mmol/L Glucose 131 H (74-99) mg/dL POC Glucose (mg/dL) (75-99) mg/dL Calcium 8.3 L (8.4-10.2) mg/dL Assessment and Plan Assessment: DM 2, uncontrolled - much improved control with levemir - SSI, and levemir 10 units qhs, Accucheck qAC and HS- orders added to discharge plan. - hold metformin and actos plan on discharge to SNF on basal bolus. Has tried multiple oral medications with various symptoms. - DM educator consult. - A1C 9.1 Right ankle fracture s/p closed reduction and external fixation -Orthopedic recommendations, NWB -Will need definitive repair with planned readmission. -Await insurance auth for SNF. Constipation - miralax today - suppository if no result - continue colace daily. HTN urgency on arrival resolved with pain control - conitnue home HCTZ and cozaar - follow BP- suspect mild elevation due to pain. Morbid obesity, BMI 39.9 - structured outpatient weight loss. HLD - Statin Medically stable for discharge at the discretion of orthopedics. Dr. White does round at [facility]. DVT prophylaxis: SCDs Discussed with: Patient, daughter. A total of 25 minutes was spent on the care of this complex patient more than 50 % of the time was spent in counseling and care coordination.
--- NOTE | 2018-06-12 09:16 | P.DS ---
Providers Date of admission: 06/10/18 11:26 Expected date of discharge: 06/12/18 Attending physician: Jaron Kelsey Consults: 06/09/18 03:46 Consult Physician Routine Consulting Provider: Seema Braxton Consult Reason/Comments: Medical Management Do you want consulting provider notified?: Yes Primary care physician: Shon White - Discharge Diagnosis(es) (1) Closed trimalleolar fracture of right ankle Patient was admitted to the OR on 06/10/2018 to undergo a closed reduction application of external fixation device for right tri mal ankle fracture. She had failed conservative measures as an outpatient and desired to proceed with elective surgery after given informed consent. She underwent the above procedure which he tolerated well without complication. Postoperative hospital course has remained without complication. On day of discharge she is afebrile, vital signs stable, labs within acceptable ranges, tolerating by mouth meds and diet, voiding without difficulty, positive flatus, denies abdominal pain or calf pain, pain is controlled on oral pain medication and has no new complaints. Wound is benign, neurovascular status is intact, calf is soft and nontender, abdomen soft and nontender. Review of systems is negative for numbness, tingling, fever, chills, chest pain, shortness breath, nausea, vomiting, dizziness, headaches, slurred speech or other. Current Visit: Yes Status: Acute Priority: Medium Procedures: Ex Fix right ankle Patient Condition at Discharge: Stable Plan - Discharge Summary Discharge Rx Participant: Yes New Discharge Prescriptions: New Docusate [Colace] 100 mg PO BID PRN cap PRN Reason: Constipation Insulin Aspart [NovoLOG (formulary)] 0 unit SQ ACHS vial Insulin Detemir [Levemir] 10 unit SQ HS syr Melatonin 5 mg PO HS PRN tablet PRN Reason: Insomnia Aspirin 325 mg PO BID #60 tab Docusate [Colace] 100 mg PO BID #60 capsule HYDROcodone/APAP 10-325MG [Comanche 10-325] 1 tab PO Q4HR PRN #42 tab PRN Reason: Pain Continue Losartan Potassium [Cozaar] 25 mg PO DAILY Hydrochlorothiazide 25 mg PO DAILY Atorvastatin [Lipitor] 20 mg PO DAILY Aspirin 81 mg PO DAILY Discontinued metFORMIN HCL [Glucophage] 500 mg PO DAILY metFORMIN HCL [Glucophage] 1,000 mg PO HS Pioglitazone [Actos] 15 mg PO DAILY Discharge Medication List Aspirin 81 mg PO DAILY 06/09/18 [History] Atorvastatin [Lipitor] 20 mg PO DAILY 06/09/18 [History] Hydrochlorothiazide 25 mg PO DAILY 06/09/18 [History] Losartan Potassium [Cozaar] 25 mg PO DAILY 06/09/18 [History] Aspirin 325 mg PO BID #60 tab 06/12/18 [Rx] Docusate [Colace] 100 mg PO BID #60 capsule 06/12/18 [Rx] Docusate [Colace] 100 mg PO BID PRN cap 06/12/18 [Rx] HYDROcodone/APAP 10-325MG [Comanche 10-325] 1 tab PO Q4HR PRN #42 tab 06/12/18 [Rx] Insulin Aspart [NovoLOG (formulary)] 0 unit SQ ACHS vial 06/12/18 [Rx] Insulin Detemir [Levemir] 10 unit SQ HS syr 06/12/18 [Rx] Melatonin 5 mg PO HS PRN tablet 06/12/18 [Rx] Follow up Appointment(s)/Referral(s): Shon White MD [Primary Care Provider] - 1-2 days Jaron Kelsey MD [Medical Doctor] - 06/16/18 Activity/Diet/Wound Care/Special Instructions: Carb consistent diet, with PM snack Blood sugar qAC and HS. Maintain bandage daily pin site care with peroxide elevate extremity above heart nonweightbearing F/U with Dr. Kelsey in office take meds as directed Discharge Disposition: TRANSFER TO SNF/ECF
[2018-06-12] MEDS: LOSARTAN 25 MG TAB PO SCH (09:39)
[2018-06-12] MEDS: ATORVASTATIN 20 MG TAB PO SCH (09:39)
[2018-06-12] MEDS: ACETAMINOPHEN TAB 325 MG TAB PO PRN ×2 (09:39→17:07)
[2018-06-12] MEDS: HYDROCHLOROTHIAZIDE 25 MG TAB PO SCH (09:39)
[2018-06-12] MEDS: ENOXAPARIN 30 MG/0.3 ML SYRINGE SQ SCH (11:05)
[2018-06-12 12:17] LABS: Glucose,Whole Blood 172 mg/dL (75-99)
[2018-06-12 17:17] LABS: Glucose,Whole Blood 181 mg/dL (75-99)
[2018-06-12 20:16] LABS: Glucose,Whole Blood 269 mg/dL (75-99)
[2018-06-12] MEDS: KETOROLAC 30 MG/ML 1 ML VIAL IVP PRN (21:02)
[2018-06-12] MEDS: INSULIN DETEMIR 100 UNIT/ML 10 ML VIAL SQ SCH (21:02)
[2018-06-12 23:59] LABS: Glucose,Whole Blood 220 mg/dL (75-99)
[2018-06-13 02:06] LABS: Glucose,Whole Blood 158 mg/dL (75-99)
[2018-06-13 07:20] LABS: Glucose,Whole Blood 144 mg/dL (75-99)
[2018-06-13] MEDS: ENOXAPARIN 30 MG/0.3 ML SYRINGE SQ SCH (07:59)
[2018-06-13] MEDS: INSULIN ASPART 100 UNIT/ML 1 ML 10 ML VIAL SQ SCH ×4 (07:59→20:28)
[2018-06-13] MEDS: ATORVASTATIN 20 MG TAB PO SCH (08:00)
[2018-06-13] MEDS: HYDROCHLOROTHIAZIDE 25 MG TAB PO SCH (08:00)
[2018-06-13] MEDS: LOSARTAN 25 MG TAB PO SCH (08:00)
[2018-06-13] MEDS ORDERED: ENOXAPARIN 30 MG/0.3 ML SYRINGE SQ SCH (09:00)
--- NOTE | 2018-06-13 10:40 | P.PN ---
Subjective Progress Note Date: 06/13/18 Principal diagnosis: S/P ex fix application right ankle Patient is seen at bedside this morning. She is postop day # 3 from closed reduction and application of ex fix to right ankle fracture. She has controlled pain at the surgical site as expected but denies any new complaints. She denies numbness, tingling or calf pain. Review of systems is negative for fever, chills, chest pain, shortness of breath or other Objective - Vital Signs Vital signs: Vital Signs Temp 98.8 F 06/13/18 07:15 Pulse 78 06/13/18 07:15 Resp 14 06/13/18 07:15 BP 150/79 06/13/18 07:15 Pulse Ox 93 L 06/13/18 07:15 Intake & Output 06/12/18 06/13/18 06/13/18 18:59 06:59 18:59 Intake Total 857 240 Balance 857 240 Weight 115.7 kg Intake: Oral 857 240 Other: Voiding Method Bedside Commode # Voids 1 1 - Exam Inspection reveals a benign pin site wounds. There is no active bleeding or drainage. Neurovascular status is intact throughout the lower extremity with motor and sensation fully intact. Calf is soft and nontender. 2+ dorsalis pedis pulse and less than 2 second cap refill is present - Constitutional General appearance: Present: no acute distress - Labs CBC & Chem 7: 06/12/18 07:31 06/12/18 07:31 Labs: Abnormal Lab Results - Last 24 Hours (Table) 06/12/18 06/12/18 06/12/18 Range/Units 12:15 17:16 20:12 POC Glucose (mg/dL) 172 H 181 H 269 H (75-99) mg/dL 06/12/18 06/13/18 06/13/18 Range/Units 23:56 02:04 07:19 POC Glucose (mg/dL) 220 H 158 H 144 H (75-99) mg/dL Assessment and Plan (1) Closed trimalleolar fracture of right ankle Narrative/Plan: She will continue with routine postop orthopedic protocol including pain management, wound care, DVT prophylaxis and medical management. Expect that she will undergo ORIF of right ankle on Tuesday. Current Visit: Yes Status: Acute Priority: Medium Code(s): S82.851A - DISPLACED TRIMALLEOLAR FRACTURE OF RIGHT LOWER LEG, INIT SNOMED Code(s): 2824787 Time with Patient: Less than 30
[2018-06-13 11:42] LABS: Glucose,Whole Blood 173 mg/dL (75-99)
[2018-06-13] MEDS: DOCUSATE 100 MG CAP PO PRN (12:51)
[2018-06-13] MEDS: ACETAMINOPHEN TAB 325 MG TAB PO PRN (16:21)
[2018-06-13 17:15] LABS: Glucose,Whole Blood 219 mg/dL (75-99)
[2018-06-13 20:19] LABS: Glucose,Whole Blood 239 mg/dL (75-99)
[2018-06-13] MEDS: INSULIN DETEMIR 100 UNIT/ML 10 ML VIAL SQ SCH (20:28)
[2018-06-13] MEDS: KETOROLAC 30 MG/ML 1 ML VIAL IVP PRN (22:07)
[2018-06-14 01:59] LABS: Glucose,Whole Blood 162 mg/dL (75-99)
[2018-06-14 07:28] LABS: Glucose,Whole Blood 144 mg/dL (75-99)
[2018-06-14] MEDS: ENOXAPARIN 30 MG/0.3 ML SYRINGE SQ SCH (08:38)
[2018-06-14] MEDS: ATORVASTATIN 20 MG TAB PO SCH (08:38)
[2018-06-14] MEDS: LOSARTAN 25 MG TAB PO SCH (08:38)
[2018-06-14] MEDS: INSULIN ASPART 100 UNIT/ML 1 ML 10 ML VIAL SQ SCH ×4 (08:38→21:24)
[2018-06-14] MEDS: HYDROCHLOROTHIAZIDE 25 MG TAB PO SCH (08:38)
--- NOTE | 2018-06-14 08:51 | P.PN ---
Subjective Progress Note Date: 06/14/18 Principal diagnosis: S/P ex fix application right ankle Patient is seen at bedside this morning. She is postop day # 4 from closed reduction and application of ex fix to right ankle fracture. She has controlled pain at the surgical site as expected but denies any new complaints. She denies numbness, tingling or calf pain. Review of systems is negative for fever, chills, chest pain, shortness of breath or other Objective - Vital Signs Vital signs: Vital Signs Temp 98.9 F 06/14/18 07:00 Pulse 78 06/14/18 07:00 Resp 16 06/14/18 07:00 BP 154/88 06/14/18 07:00 Pulse Ox 95 06/14/18 07:00 Intake & Output 06/13/18 06/14/18 06/14/18 18:59 06:59 18:59 Intake Total 1000 Balance 1000 Weight 115.7 kg Intake: Oral 1000 Other: Voiding Method Bedside Commode Bedside Commode # Voids 3 2 # Bowel Movements 1 - Exam Inspection reveals benign pin site wounds. Splint in place. There is no active bleeding or drainage. Neurovascular status is intact throughout the lower extremity with motor and sensation fully intact. Calf is soft and nontender. 2+ dorsalis pedis pulse and less than 2 second cap refill is present - Constitutional General appearance: Present: no acute distress - Labs CBC & Chem 7: 06/12/18 07:31 06/12/18 07:31 Labs: Abnormal Lab Results - Last 24 Hours (Table) 06/13/18 06/13/18 06/13/18 Range/Units 11:41 17:13 20:16 POC Glucose (mg/dL) 173 H 219 H 239 H (75-99) mg/dL 06/14/18 06/14/18 Range/Units 01:58 07:27 POC Glucose (mg/dL) 162 H 144 H (75-99) mg/dL Assessment and Plan (1) Closed trimalleolar fracture of right ankle Narrative/Plan: She will continue with routine postop orthopedic protocol including pain management, wound care, DVT prophylaxis and medical management. Expect that she will undergo ORIF of right ankle on Tuesday. Current Visit: Yes Status: Acute Priority: Medium Code(s): S82.851A - DISPLACED TRIMALLEOLAR FRACTURE OF RIGHT LOWER LEG, INIT SNOMED Code(s): 8996451 Time with Patient: Less than 30
[2018-06-14 12:01] LABS: Glucose,Whole Blood 188 mg/dL (75-99)
[2018-06-14] MEDS ORDERED: MORPHINE ORAL SOLN 10 MG/5 ML CUP PO PRN (13:54)
[2018-06-14 16:59] LABS: Glucose,Whole Blood 186 mg/dL (75-99)
[2018-06-14 20:58] LABS: Glucose,Whole Blood 259 mg/dL (75-99)
[2018-06-14] MEDS: INSULIN DETEMIR 100 UNIT/ML 10 ML VIAL SQ SCH (21:23)
[2018-06-14] MEDS: ACETAMINOPHEN TAB 325 MG TAB PO PRN (21:23)
[2018-06-15 02:08] LABS: Glucose,Whole Blood 137 mg/dL (75-99)
[2018-06-15 07:53] LABS: Glucose,Whole Blood 130 mg/dL (75-99)
[2018-06-15] MEDS: INSULIN ASPART 100 UNIT/ML 1 ML 10 ML VIAL SQ SCH ×4 (08:27→21:46)
[2018-06-15] MEDS: LOSARTAN 25 MG TAB PO SCH (08:35)
[2018-06-15] MEDS: ENOXAPARIN 30 MG/0.3 ML SYRINGE SQ SCH (08:35)
[2018-06-15] MEDS: ATORVASTATIN 20 MG TAB PO SCH (08:35)
[2018-06-15] MEDS: HYDROCHLOROTHIAZIDE 25 MG TAB PO SCH (08:35)
--- NOTE | 2018-06-15 09:32 | P.PN ---
Subjective Progress Note Date: 06/15/18 Principal diagnosis: S/P ex fix application right ankle Patient is seen at bedside this morning. She is postop day # 5 from closed reduction and application of ex fix to right ankle fracture. She has controlled pain at the surgical site as expected but denies any new complaints. She is pending ORIF tomorrow. She denies numbness, tingling or calf pain. Review of systems is negative for fever, chills, chest pain, shortness of breath or other Objective - Vital Signs Vital signs: Vital Signs Temp 98.3 F 06/15/18 07:25 Pulse 79 06/15/18 07:25 Resp 14 06/15/18 07:25 BP 160/92 06/15/18 07:25 Pulse Ox 93 L 06/15/18 07:25 Intake & Output 06/14/18 06/15/18 06/15/18 18:59 06:59 18:59 Weight 115.7 kg Other: Voiding Method Bedside Commode Bedside Commode Bedside Commode # Voids 2 1 - Exam Inspection reveals benign pin site wounds. Splint was taken down. No active blistering seen. No signs of infection. There is no active bleeding or drainage. Neurovascular status is intact throughout the lower extremity with motor and sensation fully intact. Calf is soft and nontender. 2+ dorsalis pedis pulse and less than 2 second cap refill is present - Constitutional General appearance: Present: no acute distress - Labs CBC & Chem 7: 06/12/18 07:31 06/12/18 07:31 Labs: Abnormal Lab Results - Last 24 Hours (Table) 06/14/18 06/14/18 06/14/18 Range/Units 11:58 16:56 20:40 POC Glucose (mg/dL) 188 H 186 H 259 H (75-99) mg/dL 06/15/18 06/15/18 Range/Units 02:04 07:51 POC Glucose (mg/dL) 137 H 130 H (75-99) mg/dL Assessment and Plan (1) Closed trimalleolar fracture of right ankle Narrative/Plan: She will continue with routine postop orthopedic protocol including pain management, wound care, DVT prophylaxis and medical management. Expect that she will undergo ORIF of right ankle on Tuesday. Current Visit: Yes Status: Acute Priority: Medium Code(s): S82.851A - DISPLACED TRIMALLEOLAR FRACTURE OF RIGHT LOWER LEG, INIT SNOMED Code(s): 8617286 Time with Patient: Less than 30
[2018-06-15 12:08] LABS: Glucose,Whole Blood 172 mg/dL (75-99)
[2018-06-15 17:08] LABS: Glucose,Whole Blood 254 mg/dL (75-99)
[2018-06-15 19:24] LABS: Glucose,Whole Blood 284 mg/dL (75-99)
[2018-06-15] MEDS: INSULIN DETEMIR 100 UNIT/ML 10 ML VIAL SQ SCH (21:46)
[2018-06-16 01:36] LABS: Glucose,Whole Blood 134 mg/dL (75-99)
[2018-06-16] MEDS ORDERED: LIDOCAINE 1% 20 ML VIAL (10MG/ML) FOR IV START INTRADERMA PRN (07:06)
[2018-06-16] MEDS ORDERED: SCOPOLAMINE 1.5MG/72HR PATCH TRANSDERM ONE (07:06)
[2018-06-16] MEDS ORDERED: DEXAMETHASONE SOD PHOSPHATE 10 MG/ML 1 ML VIAL IV ONE (07:06)
[2018-06-16] MEDS ORDERED: ONDANSETRON 4 MG/2 ML VIAL IVP ONE (07:06)
[2018-06-16 07:14] LABS: Glucose,Whole Blood 161 mg/dL (75-99)
[2018-06-16] MEDS: INSULIN ASPART 100 UNIT/ML 1 ML 10 ML VIAL SQ SCH ×4 (09:26→21:05)
[2018-06-16] MEDS: ATORVASTATIN 20 MG TAB PO SCH (09:26)
[2018-06-16] MEDS: ENOXAPARIN 30 MG/0.3 ML SYRINGE SQ SCH (09:26)
[2018-06-16] MEDS: HYDROCHLOROTHIAZIDE 25 MG TAB PO SCH (09:27)
[2018-06-16] MEDS: LOSARTAN 25 MG TAB PO SCH (09:29)
[2018-06-16] MEDS: LACTATED RINGERS 1,000 ML IV SCH ×3 (11:07→23:50)
[2018-06-16 11:18] LABS: Glucose,Whole Blood 134 mg/dL (75-99)
[2018-06-16] MEDS ORDERED: ePHEDrine SULFATE/0.9% NACL/PF 50 MG/5 ML SYRINGE IV ONE (12:36)
[2018-06-16] MEDS ORDERED: fentaNYL (PF) 50 MCG/ML 2 ML AMP ONE (12:36)
[2018-06-16] MEDS ORDERED: PROPOFOL 10 MG/ML 20 ML VIAL IV ONE (12:36)
[2018-06-16] MEDS ORDERED: LIDOCAINE 1% INJ 10MG/ML (20 ML MDV) ONE (12:36)
[2018-06-16] MEDS ORDERED: SUCCINYLCHOLINE CHLORIDE 100 MG/5 ML SYR IV ONE (12:36)
[2018-06-16] MEDS ORDERED: MIDAZOLAM 2 MG/2 ML VIAL ONE (12:36)
[2018-06-16] MEDS ORDERED: PHENYLEPHRINE-0.9% NACL SYG 1 MG/10 ML SYRINGE ONE (12:36)
[2018-06-16] MEDS ORDERED: ROPIVACAINE 5 MG/ML 30 ML VIAL ONE (12:36)
[2018-06-16] MEDS ORDERED: ceFAZolin 1,000 MG/50 ML BAG (PMX) IVPB ONE (13:19)
[2018-06-16] MEDS ORDERED: ceFAZolin 1,000 MG in SODIUM CHLORIDE 0.9% 1,000 ML IRRIGATION ONE (13:28)
--- NOTE | 2018-06-16 13:58 | P.ONQ ---
Anesthesiology Proc Note - PNB - Peripheral Nerve Block Performed Left Popliteal Single Time Out Performed: Yes Procedure Start Time: 12:12 Procedure Stop Time: 12:20 Indication: Acute Post-Operative Pain, Requested by physician Sedation Type: Sedate with meaningful contact maintained Preparation: Sterile Prep Needle Size: 50mm (2") Needle Gauge: 21 Technique: Ultrasound Injectate: 0.5% Ropivacaine (see comment for volume) (ropi .5% 15cc) Blood Aspirated: No Pain Paresthesia on Injection Noted: No Resistance on Injection: Normal Events: Uneventful and Well Tolerated
--- NOTE | 2018-06-16 14:00 | P.ONQ ---
Anesthesiology Proc Note - PNB - Peripheral Nerve Block Performed saphneous Time Out Performed: Yes Procedure Stop Time: 12:29 Indication: Acute Post-Operative Pain, Requested by physician Sedation Type: Sedate with meaningful contact maintained Preparation: Sterile Prep Position: Supine Needle Size: 100mm (4") Needle Gauge: 21 Technique: Ultrasound Injectate: 0.5% Ropivacaine (see comment for volume) (ropi .5% 15cc) Blood Aspirated: No Pain Paresthesia on Injection Noted: No Resistance on Injection: Normal Events: Uneventful and Well Tolerated
[2018-06-16] MEDS ORDERED: LACTATED RINGERS 1,000 ML IV ONE (14:23)
--- NOTE | 2018-06-16 14:50 | FL ---
Fluoroscopy INDICATION: Pain FINDINGS: Fluoroscopy time: 1 minute 3 seconds. Images obtained: 3. IMPRESSIONS: 1. Documentation of fluoroscopy.
[2018-06-16] MEDS ORDERED: METOCLOPRAMIDE 5 MG/ML 2 ML VIAL IVP PRN (15:16)
[2018-06-16] MEDS ORDERED: diphenhydrAMINE 25 MG CAP PO PRN (15:16)
[2018-06-16] MEDS ORDERED: TEMAZEPAM 15 MG CAP PO PRN (15:16)
[2018-06-16] MEDS ORDERED: PROCHLORPERAZINE SUPPOSITORY 25 MG SUPP RECTAL PRN (15:16)
[2018-06-16] MEDS ORDERED: HYDROcodone/APAP 5-325MG 1 EACH TAB PO PRN (15:16)
[2018-06-16] MEDS ORDERED: HYDROmorphone 1 MG/ML 1 ML SYRINGE IVP PRN ×3 (15:16)
[2018-06-16] MEDS ORDERED: SENNOSIDES-DOCUSATE SODIUM 1 EACH TAB PO PRN (15:16)
[2018-06-16] MEDS: HYDROmorphone 0.5 MG/0.5 ML SYRINGE IVP PRN ×4 (15:27→16:03)
--- NOTE | 2018-06-16 15:29 | P.OP ---
Date of Procedure: 06/16/18 Preoperative Diagnosis: 1. Closed right triimalleolar ankle fracture 2. Poorly controlled type 2 diabetes with most recent hemoglobin A1c level of 9.1 3. Obesity with a BMI of 40 4. Hypertension Postoperative Diagnosis: Same Procedure(s) Performed: 1. Open reduction and internal fixation of right trimalleolar ankle fracture ( open reduction and internal fixation of medial and lateral malleolus, nonoperative management of posterior malleolus) 2. Removal of right ankle spanning external fixator 3. Manual application of joint stress for radiography by physician, right ankle Anesthesia: GODFREY, regional Surgeon: Jaron Kelsey Tiler'S Assistant #1: Jarrett Quintanilla Estimated Blood Loss (ml): 150 IV fluids (ml): 950 Pathology: none sent Condition: stable Disposition: PACU Indications for Procedure: The patient is a 73-year-old female with multiple medical problems including poorly controlled diabetes with her most recent hemoglobin A1c being 9.1 and morbid obesity with a BMI of 40 who sustained a grossly unstable right tri malleolus ankle fracture. She was transferred to our hospital and admitted under my care. She had a poorly fitting splint which was changed on the floor. Postreduction x-rays showed subluxation of the talus posteriorly. The patient was taken to the operating room for an exam under anesthesia. Her ankle was found to be very unstable so an ankle spanning external fixator was placed to allow monitoring of the soft tissue wounds. She was seen yesterday and was found to have a soft tissue envelope with wrinkling of the skin and no fracture blisters. The decision was made to proceed with surgery. I discussed with the patient and her family surgical treatment options including a primary open reduction internal fixation acknowledging the risk of wound problems versus a primary retrograde hindfoot nail. We elected to go forward with an open reduction internal fixation. We discussed the potential risks and complications of surgery including but not limited to risk of anesthesia, risk of superficial infection, risk of deep infection, risk of delayed wound healing , risk of wound necrosis, risk of fracture malunion, risk of loss of reduction, risk of hardware failure, risk of post [place] arthritis, risk of need for further surgery including a hindfoot nail, risk of DVT, risk of PE, risk of other medical complications, and possibly loss of life or limb. The patient and her daughter understand these risks and also understands she is at a higher risk of having a complication due to her poorly controlled diabetes and morbid obesity. They provided their consent to go forward with surgery. Operative Findings: The patient had a soft tissue envelope with wrinkling of the skin but had a tenuous appearing soft tissue envelope. I made the decision to not approach the posterior malleolus and provide fixation due to the extra dissection at this would entail inferior of causing extra soft tissue damage. The patient had her lateral malleolus plated and had multiple syndesmotic screws placed in a syndesmotic ladder configuration. She also had plating of the medial malleolus. After both the medial and lateral malleolus were plated I applied a posteriorly directed force on the foot and the talus did not sublux posteriorly. At this point since her ankle appeared stable I elected to leave the posterior malleolus. Description of Procedure: The patient was identified in Holding and the correct right ankle was marked my initials. I reviewed the consent form with the patient and her daughter. All of their questions were answered. The patient was given a popliteal and saphenous nerve block by anesthesia. She was brought to the operating room and positioned on the OR table. A general anesthetic and preoperative antibiotics were administered. A tourniquet was applied proximal aspect of the right leg. All bony prominences well-padded. Prior to prepping and draping the patient the external fixator was removed. The right leg was then prepped and draped in the standard sterile fashion. Prior to starting surgery timeout was performed identifying the correct patient, operative extremity, and procedure. The leg was then elevated , exsanguinated with an Esmarch bandage, and the tourniquet was inflated to 250 mmHg. I began by outlining an incision over the lateral aspect of the distal fibula. Skin incision was made to scalpel dissection was carried down to the subcutaneous tissue to the periosteum over the fibula which was incised. The fracture site was immediately visible. Early consolidating hematoma and callus were sharply debrided. The fibula was pulled out to length and clamped. A 2.7 mm lag screw was placed across the fracture generating adequate compression. I then placed a precontoured distal fibula plate over the lateral aspect of the fibula. A nonlocking 3.5 mm screw was placed just proximal to the fracture bring the plate down to bone. I then placed a second 3.5 mm screw in the most proximal hole of the plate to control the position of the plate on the fibula. Distally the plate was sitting flush against the distal fragment so I placed four 3.5 mm locking screws. I then proceeded to place 3 syndesmotic screws due to the patient's diabetes and poor bone quality. Fluoroscopy was brought in to verify that the fibula was out to length and the ankle mortise was reduced. On the lateral view the talus was centered under the tibial plafond. Expect Attention was then turned to the medial malleolus. A longitudinal incision was marked out over the medial malleolus. Dissection was carried down carefully to the serpiginous tissue with tenotomy scissors. The fracture was immediately identified and debrided. A large [id number] reduction clamp was placed with 1 eder over the medial malleolus and a second eder over the anterolateral distal tibia. A 6-hole one third tubular plate was then contoured over the medial malleolus. A nonlocking 3.5 mm screw was placed in the third hole of the plate just proximal to the fracture. A second 3.5 mm screw was placed in the most proximal hole of the plate. I then proceeded to place 2 nonlocking 3.5 mm lag screws through the most distal hole of the plate generating excellent compression. At this point final fluoroscopic images were taken including a mortise view, manual external rotation view, a lateral x-ray and a posterior directed stress x-ray. On the mortise view the ankle appeared to be anatomically reduced. On the lateral view the talar dome was centered under the tibial plafond and. With a posteriorly directed force on the foot there was no subluxation or displacement of the posterior malleolus fracture or subluxation of the talus out from underneath the plafond. I interpreted this as a stable ankle requiring additional fixation. Both wounds were then copiously irrigated and closed in layers with a no touch technique and careful handling the soft tissue envelope. The tourniquet was let down. A sterile dressing was applied. The drapes were removed and a well-padded bulky [place] splint was placed with the ankle in neutral. The patient was then awoken from her anesthetic, transferred to a gurney, and transferred to PACU. Jarrett Quintanilla PA-C was required as a skilled printing assistant for patient positioning, surgical exposure, placement of hardware, closure of wounds, and application of splint. Plan: The patient is going to be readmitted to the floor. She will need 2 doses of postoperative antibiotics and Lovenox for DVT prophylaxis. Due to her diabetes an unstable ankle fracture she is going to be nonweightbearing for 3 months and no then be placed in a [place] boot for an additional 3 months. She will likely need discharge to a rehab facility. Will defer to internal medicine and endocrinology for tight glycemic control in the postoperative period to help facilitate healing and lower the risk of a wound complication.
[2018-06-16 17:12] LABS: Glucose,Whole Blood 196 mg/dL (75-99)
[2018-06-16] MEDS: hydrOXYzine PAMOATE 25 MG CAP PO PRN (19:32)
[2018-06-16] MEDS: HYDROcodone/APAP 5-325MG 1 EACH TAB PO PRN (19:33)
[2018-06-16 19:51] LABS: Glucose,Whole Blood 245 mg/dL (75-99)
[2018-06-16] MEDS: INSULIN DETEMIR 100 UNIT/ML 10 ML VIAL SQ SCH (21:04)
[2018-06-16] MEDS: ceFAZolin IN SWFI 2 GM/20 ML SYRINGE IVP SCH (21:04)
[2018-06-17 02:17] LABS: Glucose,Whole Blood 245 mg/dL (75-99)
[2018-06-17] MEDS: HYDROcodone/APAP 5-325MG 1 EACH TAB PO PRN ×3 (04:33→20:52)
[2018-06-17] MEDS: hydrOXYzine PAMOATE 25 MG CAP PO PRN ×3 (04:34→20:58)
[2018-06-17] MEDS: ceFAZolin IN SWFI 2 GM/20 ML SYRINGE IVP SCH (04:34)
[2018-06-17 07:02] LABS: Glucose,Whole Blood 207 mg/dL (75-99)
[2018-06-17 07:41] LABS: Basophils % (A) 0 %; Eosinophils % (A) 0 %; HCT 30.8 % (34.0-46.0); Lymphocytes # (A) 1.7 k/uL (1.0-4.8); Lymphocytes % (A) 14 %; MCH 29.2 pg (25.0-35.0); MCHC 32.1 g/dL (31.0-37.0); MCV 90.9 fL (80.0-100.0); Mean Platelet Volume 6.8; Monocytes # (A) 0.9 k/uL (0-1.0); Monocytes % (A) 7 %; Neutrophils # (A) 8.9 k/uL (1.3-7.7); Neutrophils % (A) 76 %; Platelet Count 326 k/uL (150-450); RBC 3.39 m/uL (3.80-5.40); RDW 13.4 % (11.5-15.5); WBC 11.7 k/uL (3.8-10.6)
[2018-06-17 07:45] LABS: HGB 9.9 gm/dL (11.4-16.0)
[2018-06-17] MEDS: ENOXAPARIN 30 MG/0.3 ML SYRINGE SQ SCH (07:59)
[2018-06-17] MEDS: LOSARTAN 25 MG TAB PO SCH (07:59)
[2018-06-17] MEDS: HYDROCHLOROTHIAZIDE 25 MG TAB PO SCH (07:59)
[2018-06-17] MEDS: ATORVASTATIN 20 MG TAB PO SCH (07:59)
[2018-06-17] MEDS: INSULIN ASPART 100 UNIT/ML 1 ML 10 ML VIAL SQ SCH ×4 (07:59→20:51)
[2018-06-17] MEDS: LACTATED RINGERS 1,000 ML IV SCH ×2 (08:01→13:45)
--- NOTE | 2018-06-17 10:45 | P.PN ---
Progress Note - Text Progress Note Date: 06/17/18 Patient is a very pleasant 73-year-old female who is seen as an the bedside for follow-up evaluation after undergoing ORIF of right trimalleolar fracture with removal of right ankle spanning external fixator due to close right trimalleolar ankle fracture. Postsurgically splint over the right lower extremity remains clean, dry, and intact. She has remain nonweightbearing on the right lower extremity. She states her pain has been adequately controlled. She has been applying ice for comfort over the splint as needed. She denies any right knee pain. She denies any abdominal pain. She is even voiding without difficulty. She is planned for discharge to rehabilitation facility this coming 06/19/2018. Physical Exam: Patient is awake, alert, and oriented 3 Vital signs stable Good chest excursion with deep inspiration and expiration Abdomen soft nontender Bulky splint with Trung wrap is intact over the right lower extremity Splint is clean, dry, intact with no active drainage Patient is able to wiggle toes of the right foot without difficulty Neurovascular intact right lower extremity No pain with palpation over the right knee No signs or symptoms of DVT; no calf pain on the right Extensor hallucis longus, plantarflexion, and dorsiflexion positive sustained on the left Assessment: Status post ORIF of right trimalleolar fracture with removal of right ankle spanning external fixator Right trimalleolar ankle fracture Status post fall Put controlled diabetes Morbid obesity Plan: 1. Patient will continue to keep large bulky splint over the right lower extremity clean, dry, and intact. She may elevate the splint and apply ice over the splint for comfort support as needed. She continue to remain nonweightbearing on the right lower extremity. Patient has other medical diagnoses and is currently being seen and examined by medicine. Patient most likely remain in the hospital over the weekend with plans to discharge to rehabilitation facility once cleared by medicine. 2. Continue pain control with [place] 5 mg/325 mg and Dilaudid as prescribed as needed for relief of her symptoms 3. Continue with anticoagulation with Lovenox 30 mg subcu daily 4. Medicine to continue following the patient closely 5. We will continue to follow patient closely 6. Following discharge, patient may follow-up with Dr. Kelsey in 1 week at [facility] for follow-up evaluation.
[2018-06-17 11:43] LABS: Glucose,Whole Blood 253 mg/dL (75-99)
[2018-06-17 14:15] VITALS: RESP 16
[2018-06-17 16:47] LABS: Glucose,Whole Blood 332 mg/dL (75-99)
[2018-06-17 20:13] LABS: Glucose,Whole Blood 248 mg/dL (75-99)
[2018-06-17] MEDS: INSULIN DETEMIR 100 UNIT/ML 10 ML VIAL SQ SCH (20:51)
[2018-06-18] MEDS: LACTATED RINGERS 1,000 ML IV SCH ×4 (00:07→18:18)
[2018-06-18 02:10] LABS: Glucose,Whole Blood 206 mg/dL (75-99)
[2018-06-18 06:54] LABS: Glucose,Whole Blood 189 mg/dL (75-99)
--- NOTE | 2018-06-18 09:52 | P.PN ---
Subjective Progress Note Date: 06/18/18 The patient is doing well this morning and is sitting comfortably at bedside. She had increased pain yesterday, but it is much better this morning. She has no major complaints. Objective - Vital Signs Vital signs: Vital Signs Temp 98.9 F 06/18/18 07:18 Pulse 89 06/18/18 07:18 Resp 16 06/18/18 07:18 BP 148/76 06/18/18 07:18 Pulse Ox 91 L 06/18/18 07:18 Intake & Output 06/17/18 06/18/18 06/18/18 18:59 06:59 18:59 Intake Total 540 1200 Balance 540 1200 Intake: Intake, IV Titration 200 Amount Lactated Ringers 1,000 ml 200 @ 100 mls/hr IV .Q10H JOSE RAUL Rx#:[id number] Oral 540 1000 Other: # Voids 2 1 - Exam The patient is sitting comfortably up in a chair with her right leg elevated. There is a clean-appearing splint in place. Her toes are warm and well perfused with brisk capillary refill. Sensation is intact to light touch at the tip of the toes. - Labs CBC & Chem 7: 06/17/18 06:50 06/16/18 08:26 Labs: Abnormal Lab Results - Last 24 Hours (Table) 06/17/18 06/17/18 06/17/18 Range/Units 11:39 16:35 20:11 POC Glucose (mg/dL) 253 H 332 H 248 H (75-99) mg/dL 06/18/18 06/18/18 Range/Units 01:59 06:49 POC Glucose (mg/dL) 206 H 189 H (75-99) mg/dL Assessment and Plan Plan: Patient is doing well this morning. Continue strict nonweightbearing and elevation of the right leg. The patient will likely be ready for discharge to subacute rehab tomorrow.
[2018-06-18] MEDS: INSULIN ASPART 100 UNIT/ML 1 ML 10 ML VIAL SQ SCH ×4 (09:59→20:46)
[2018-06-18] MEDS: LOSARTAN 25 MG TAB PO SCH (10:00)
[2018-06-18] MEDS: HYDROCHLOROTHIAZIDE 25 MG TAB PO SCH (10:00)
[2018-06-18] MEDS: ATORVASTATIN 20 MG TAB PO SCH (10:00)
[2018-06-18] MEDS: ENOXAPARIN 30 MG/0.3 ML SYRINGE SQ SCH (10:01)
[2018-06-18] MEDS: DOCUSATE 100 MG CAP PO PRN (10:08)
[2018-06-18 11:43] LABS: Glucose,Whole Blood 215 mg/dL (75-99)
[2018-06-18 16:43] LABS: Glucose,Whole Blood 205 mg/dL (75-99)
[2018-06-18 20:15] LABS: Glucose,Whole Blood 228 mg/dL (75-99)
[2018-06-18] MEDS: INSULIN DETEMIR 100 UNIT/ML 10 ML VIAL SQ SCH (20:46)
[2018-06-19 01:47] LABS: Glucose,Whole Blood 203 mg/dL (75-99)
[2018-06-19] MEDS: LACTATED RINGERS 1,000 ML IV SCH ×3 (05:30→13:36)
[2018-06-19 06:57] LABS: Glucose,Whole Blood 168 mg/dL (75-99)
[2018-06-19 07:08] VITALS: BP 145/79; PULSE 78; TEMP 98.4
[2018-06-19] MEDS: INSULIN ASPART 100 UNIT/ML 1 ML 10 ML VIAL SQ SCH ×2 (08:02→12:58)
[2018-06-19] MEDS: ENOXAPARIN 30 MG/0.3 ML SYRINGE SQ SCH (08:03)
[2018-06-19] MEDS: LOSARTAN 25 MG TAB PO SCH (08:03)
[2018-06-19] MEDS: HYDROCHLOROTHIAZIDE 25 MG TAB PO SCH (08:03)
[2018-06-19] MEDS: ATORVASTATIN 20 MG TAB PO SCH (08:03)
--- NOTE | 2018-06-19 09:45 | P.DS ---
Providers Date of admission: 06/10/18 11:26 Expected date of discharge: 06/19/18 Attending physician: Jaron Kelsey Consults: 06/09/18 03:46 Consult Physician Routine Consulting Provider: Seema Braxton Consult Reason/Comments: Medical Management Do you want consulting provider notified?: Yes Primary care physician: Shon White - Discharge Diagnosis(es) (1) Closed trimalleolar fracture of right ankle Patient was admitted to the OR on 06/16/2018 to undergo an ORIF of right tri mal ankle fracture. She had failed conservative measures as an outpatient and desired to proceed with elective surgery after given informed consent. She underwent the above procedure which she tolerated well without complication. Postoperative hospital course has remained without complication. On day of discharge she is afebrile, vital signs stable, labs within acceptable ranges, tolerating by mouth meds and diet, voiding without difficulty, positive flatus, denies abdominal pain or calf pain, pain is controlled on oral pain medication and has no new complaints. Wound is benign, neurovascular status is intact, calf is soft and nontender, abdomen soft and nontender. Review of systems is negative for numbness, tingling, fever Current Visit: Yes Status: Acute Priority: Medium Procedures: ORIF Right ANkle Patient Condition at Discharge: Good Plan - Discharge Summary Discharge Rx Participant: Yes New Discharge Prescriptions: New Docusate [Colace] 100 mg PO BID PRN cap PRN Reason: Constipation Insulin Aspart [NovoLOG (formulary)] 0 unit SQ ACHS vial Insulin Detemir [Levemir] 10 unit SQ HS syr Melatonin 5 mg PO HS PRN tablet PRN Reason: Insomnia Aspirin 325 mg PO BID #60 tab Docusate [Colace] 100 mg PO BID #60 capsule HYDROcodone/APAP 10-325MG [[place] 10-325] 1 tab PO Q4HR PRN #42 tab PRN Reason: Pain Continue Losartan Potassium [Cozaar] 25 mg PO DAILY Hydrochlorothiazide 25 mg PO DAILY Atorvastatin [Lipitor] 20 mg PO DAILY Aspirin 81 mg PO DAILY Discontinued metFORMIN HCL [Glucophage] 500 mg PO DAILY metFORMIN HCL [Glucophage] 1,000 mg PO HS Pioglitazone [Actos] 15 mg PO DAILY Discharge Medication List Aspirin 81 mg PO DAILY 06/09/18 [History] Atorvastatin [Lipitor] 20 mg PO DAILY 06/09/18 [History] Hydrochlorothiazide 25 mg PO DAILY 06/09/18 [History] Losartan Potassium [Cozaar] 25 mg PO DAILY 06/09/18 [History] Aspirin 325 mg PO BID #60 tab 06/12/18 [Rx] Docusate [Colace] 100 mg PO BID #60 capsule 06/12/18 [Rx] Docusate [Colace] 100 mg PO BID PRN cap 06/12/18 [Rx] HYDROcodone/APAP 10-325MG [[place] 10-325] 1 tab PO Q4HR PRN #42 tab 06/12/18 [Rx] Insulin Aspart [NovoLOG (formulary)] 0 unit SQ ACHS vial 06/12/18 [Rx] Insulin Detemir [Levemir] 10 unit SQ HS syr 06/12/18 [Rx] Melatonin 5 mg PO HS PRN tablet 06/12/18 [Rx] Follow up Appointment(s)/Referral(s): Shon White MD [Primary Care Provider] - 1-2 days Jaron Kelsey MD [Medical Doctor] - 07/03/18 9:30 am ( ) Activity/Diet/Wound Care/Special Instructions: Carb consistent diet, with PM snack Blood sugar qAC and HS. Maintain bandage daily pin site care with peroxide elevate extremity above heart nonweightbearing F/U with Dr. Kelsey in office take meds as directed Discharge Disposition: TRANSFER TO SNF/ECF
[2018-06-19 11:43] LABS: Glucose,Whole Blood 161 mg/dL (75-99)
== END 2018-06-19 14:02 | DRG 493 ==
LOC: EC 02:00 → 3SUR 03:29 → OBSVTOIN 06-10 11:26
PROVIDERS: ADMIT Orthopaedic Surgery; ATTEND Orthopaedic Surgery
PROC: 0QSJ35Z Reposition Right Fibula with External Fixation Device, Percutaneous Approach (ICD-10-PCS; 2018-06-10)
PROC: 0QSG35Z Reposition Right Tibia with External Fixation Device, Percutaneous Approach (ICD-10-PCS; 2018-06-10)
PROC: 0QSG04Z Reposition Right Tibia with Internal Fixation Device, Open Approach (ICD-10-PCS; 2018-06-16)
PROC: 0QPJX5Z Removal of External Fixation Device from Right Fibula, External Approach (ICD-10-PCS; 2018-06-16)
PROC: 0QPGX5Z Removal of External Fixation Device from Right Tibia, External Approach (ICD-10-PCS; 2018-06-16)
PROC: 0QSJ04Z Reposition Right Fibula with Internal Fixation Device, Open Approach (ICD-10-PCS; principal; 2018-06-16 12:00)
DX: S82.851A Displaced trimalleolar fracture of right lower leg, initial encounter for closed fracture (principal); Z68.41 Body mass index [BMI] 40.0-44.9, adult; W01.0XXA Fall on same level from slipping, tripping and stumbling without subsequent striking against object, initial encounter; E11.65 Type 2 diabetes mellitus with hyperglycemia; E66.01 Morbid (severe) obesity due to excess calories; E78.5 Hyperlipidemia, unspecified; I10 Essential (primary) hypertension; I16.0 Hypertensive urgency; K59.00 Constipation, unspecified; M19.90 Unspecified osteoarthritis, unspecified site; M81.0 Age-related osteoporosis without current pathological fracture; K57.90 Diverticulosis of intestine, part unspecified, without perforation or abscess without bleeding; Z79.84 Long term (current) use of oral hypoglycemic drugs; Z79.82 Long term (current) use of aspirin; Z79.899 Other long term (current) drug therapy; Z88.8 Allergy status to other drugs, medicaments and biological substances; Z90.49 Acquired absence of other specified parts of digestive tract; Z82.3 Family history of stroke; Z80.9 Family history of malignant neoplasm, unspecified; Y92.89 Other specified places as the place of occurrence of the external cause
CPT/HCPCS: 71045; 80048; 80053; 81003; 83036; 84132; 85025; 85027; 85610; 85730; 86850; 86900; 86901; 93005; 99284

== ENCOUNTER 2018-08-08 14:11 | Emergency (ER) | payer MEDICARE ==
[2018-08-08 14:19] VITALS: TEMP 98.1
--- NOTE | 2018-08-08 14:41 | US ---
EXAMINATION TYPE: US venous doppler duplex LE RT DATE OF EXAM: 08/08/2018 1:50 PM COMPARISON: NONE CLINICAL HISTORY: M25.571,Pain in right ankle and joints of right fo. SIDE PERFORMED: Right TECHNIQUE: The lower extremity deep venous system is examined utilizing real time linear array sonog trini with graded compression, doppler sonography and color-flow sonography. VESSELS IMAGED: External Iliac Vein (EIV) Common Femoral Vein Deep Femoral Vein Greater Saphenous Vein * Femoral Vein Popliteal Vein Small Saphenous Vein * Proximal Calf Veins (* superficial vessels) Right Leg: Positive for DVT. There is hyperechoic material expanding proximal popliteal vein extending into mid and distal poplite al vein with noncompressibility and absent color flow. IMPRESSION: Acute DVT in begins in the proximal to mid popliteal vein extending into smaller branchin g vessels with adjacent subcutaneous edema.
--- NOTE | 2018-08-08 14:45 | ED ---
General Adult HPI - General Chief complaint: Recheck/Abnormal Lab/Rx Stated complaint: Blood clot behind knee Source: patient Mode of arrival: wheelchair Limitations: no limitations - History of Present Illness Initial comments: 73-year-old field past medical history of recent right ankle fracture with surgery performed 06/16/2018 type 2 diabetes, hyperlipidemia and hypertension presenting today for chief complaint sent over from ultrasound for blood clot. Patient states that she recently fractured her right ankle, and underwent surgery onset of her by Dr. Kelsey. Patient states that since surgery she has had some swelling of the right lower extremity however she thought this was consistent with postsurgical changes. Patient was evaluated this morning by Dr. Kelsey was concerned after palpating the calf inducing pain. Deep venous thrombosis. Patient was sent for ultrasound, which was positive for a right proximal mid popliteal deep venous thrombosis. No noted occlusion. Patient denies any symptoms, she denies any chest pain, shortness of breath, chest pain with deep inspection, back pain, dyspnea on exertion. The patient states that she didn't have pain in her right leg, Upon arrival pt VS within acceptable limits HR 90 bpm, 99% on RA. It is in no acute distress. There is a walking boot on the right lower extremity. Remainder of ROS (-) patient denies any recent fever, chills, abdominal pain, nausea or vomiting, numbness or tingling, dysuria or hematuria, constipation or diarrhea, headaches or visual changes, or any other complaints. Patient denies history of blood clots or pulmonary arm was numb. Patient denies recent stroke or heart attack. Patient denies any history of GI bleed. - Related Data Home Medications Medication Instructions Recorded Confirmed Aspirin 81 mg PO DAILY 06/09/18 08/08/18 Atorvastatin [Lipitor] 20 mg PO DAILY 06/09/18 08/08/18 Hydrochlorothiazide 25 mg PO DAILY 06/09/18 08/08/18 Losartan Potassium [Cozaar] 25 mg PO DAILY 06/09/18 08/08/18 Pioglitazone [Actos] 15 mg PO DAILY 08/08/18 08/08/18 metFORMIN HCL [Glucophage] 1,000 mg PO HS 08/08/18 08/08/18 metFORMIN HCL [Glucophage] 500 mg PO DAILY 08/08/18 08/08/18 Previous Rx's Medication Instructions Recorded Aspirin 325 mg PO BID #60 tab 06/12/18 Apixaban [Eliquis] 0 mg PO DIRECTED 30 Days #74 tab 08/08/18 Allergies Allergy/AdvReac Type Severity Reaction Status Date / Time Corticosteroids Allergy Rapid Verified 08/08/18 15:14 (Glucocorticoids) Heart Rate shellfish derived [Shellfish] Allergy Rash/Hives Verified 08/08/18 15:14 PAPER TAPE AdvReac Itching Uncoded 08/08/18 15:14 Review of Systems ROS Statement: Those systems with pertinent positive or pertinent negative responses have been documented in the HPI. ROS Other: All systems not noted in ROS Statement are negative. Constitutional: Denies: fever, chills, night sweats Eyes: Denies: eye pain, vision change ENT: Denies: ear pain Respiratory: Denies: cough, dyspnea, wheezes, hemoptysis, stridor Cardiovascular: Denies: chest pain, palpitations Endocrine: Denies: fatigue Gastrointestinal: Denies: abdominal pain, nausea, vomiting, diarrhea, constipation, hematemesis, melena Genitourinary: Denies: urgency, dysuria Musculoskeletal: Reports: as per HPI. Denies: joint swelling Skin: Reports: other (right LE foot edema). Denies: rash, lesions Neurological: Denies: headache, numbness, paresthesias, confusion Past Medical History Past Medical History: Diabetes Mellitus, Hyperlipidemia, Hypertension, Osteoarthritis (OA) Additional Past Medical History / Comment(s): diverticulitis History of Any Multi-Drug Resistant Organisms: None Reported Past Surgical History: Bowel Resection, Orthopedic Surgery Additional Past Surgical History / Comment(s): I'll resection due to diverticulitis, right ankle scope for arthritis, left ankle scope for tendon repair, rt ankle Past Anesthesia/Blood Transfusion Reactions: No Reported Reaction Past Psychological History: No Psychological Hx Reported Smoking Status: Never smoker Past Alcohol Use History: Rare Past Drug Use History: None Reported - Past Family History Mother Additional Family Medical History / Comment(s): Sepsis Father Family Medical History: Cancer, CVA/TIA General Exam - General Exam Comments Initial Comments: General: The patient is awake and alert, in no distress, and does not appear acutely ill. Eye: Pupils are equal, round and reactive to light, extra-ocular movements are intact. No nystagmus. There is normal conjunctiva bilaterally. No signs of icterus. Ears, nose, mouth and throat: There are moist mucous membranes and no oral lesions. Neck: The neck is supple, there is no tenderness or JVD. Cardiovascular: There is a regular rate and rhythm. No murmur, rub or gallop is appreciated. Respiratory: Lungs are clear to auscultation, respirations are non-labored, breath sounds are equal. No wheezes, stridor, rales, or rhonchi. No pain with deep inspiration Musculoskeletal: Normal ROM, no tenderness. Strength 5/5. Sensation intact of the LE. DP pulses right LE 2+. Pitting edema of the right foot. Neurological: A&O x 3. CN II-XII intact, There are no obvious motor or sensory deficits. Coordination appears grossly intact. Speech is normal. Skin: Skin is warm and dry and no rashes or lesions are noted. Positive right lower extremity Homans sign. There is pain from the posterior right calf up towards the posterior fossa of the right knee. No gross redness or palpable masses. Small area of ulceration on the lateral aspect of the right LE, no surrounding erythema or drainage. Psychiatric: Cooperative, appropriate mood & affect, normal judgment. Limitations: no limitations Course Vital Signs 08/08/18 08/08/18 08/08/18 14:15 15:20 15:35 Temperature 98.1 F Pulse Rate 90 89 Respiratory 20 18 18 Rate Blood Pressure 156/96 150/72 154/78 O2 Sat by Pulse 99 99 98 Oximetry Medical Decision Making - Medical Decision Making Ultrasound revealed acute DVT that extends from the proximal to mid popliteal vein into a small retinal vessels there is some adjacent subcutaneous edema. There is no involvement of the iliofemoral, patient is not at high risk for bleed, denies history of CT stroke or history of consistent falls. Patient denies any symptoms of embolism. Patient denies renal failure. pt is ambulatory. At this time patient be started on eliquis 10 mg twice a day 10 days. Remainder of treatment will be 5 mg twice a day. Patient is to follow- up in 2-3 days with primary care provide or Dr. Kelsey. Remainder of treatment we'll prescribe by primary care physician or surgeon. Patient verbalized understanding of plan. She states she is agreeable with treatment plan. Patient was educated the signs and symptoms of pulmonary embolism instructed to return immediately for shortness of breath, dyspnea upon exertion , chest pain, pleuritic chest pain, back pain, dizzines, pallor/pain in extremity or any other worrisome/concerning symptoms. Case discussed with Dr. Edmond who reviewed imaging and case was discussed in detail- he agreed wtih impression and plan pt discharged in stable condition. Disposition Clinical Impression: DVT, lower extremity Disposition: HOME SELF-CARE Condition: Good Instructions: Deep Vein Thrombosis (ED) Additional Instructions: Please use medication as discussed. Please follow-up with orthopedic surgery in the next 2-3 days. Please return to emergency room if the symptoms increase or worsen or for any other concerns, including shortness of breath, pain with deep inspiration, chest pain, shorts breath with exertion. Prescriptions: Apixaban [Eliquis] 0 mg PO DIRECTED 30 Days #74 tab Is patient prescribed a controlled substance at d/c from ED?: No Referrals: Shon White MD [Primary Care Provider] - 1-2 days Jaron Kelsey MD [Medical Doctor] - 1-2 days Time of Disposition: 15:16
[2018-08-08] MEDS ORDERED: APIXABAN 5 MG TAB PO STA (15:08)
[2018-08-08 15:23] VITALS: RESP 18
[2018-08-08 15:36] VITALS: BP 154/78; PULSE 89
== END 2018-08-08 15:39 | disposition home or self-care (01) ==
LOC: EC 14:11
DX: I82.431 Acute embolism and thrombosis of right popliteal vein (principal); I82.4Y1 Acute embolism and thrombosis of unspecified deep veins of right proximal lower extremity; E11.9 Type 2 diabetes mellitus without complications; I10 Essential (primary) hypertension; E78.5 Hyperlipidemia, unspecified; Z79.82 Long term (current) use of aspirin; Z79.84 Long term (current) use of oral hypoglycemic drugs; Z79.899 Other long term (current) drug therapy; Z88.8 Allergy status to other drugs, medicaments and biological substances; Z91.013 Allergy to seafood; Z91.048 Other nonmedicinal substance allergy status; Z87.81 Personal history of (healed) traumatic fracture; Z98.890 Other specified postprocedural states
CPT/HCPCS: 99283

== ENCOUNTER → 2019-04-19 | Outpatient (CLI) | payer MEDICARE ==
--- NOTE | 2019-04-20 11:02 | MM ---
Reason for exam: screening (asymptomatic). Last mammogram was performed 1 year and 9 months ago. History: Patient is postmenopausal. Took hormonal contraceptives for 5 years. Physical Findings: A clinical breast exam by your physician is recommended on an annual basis and results should be correlated with mammographic findings. MG 3D Screening Mammo W/Cad Bilateral CC and MLO view(s) were taken. Prior study comparison: July 12, 2017, bilateral MG 3d screening mammo w/cad. June 28, 2016, bilateral MG 3d screening mammo w/cad. The breast tissue is almost entirely fat. Asymmetric breast tissue 7mm in right breast MLO 12 cm from nipple on one view. This finding is changed when compared with previous exams. ASSESSMENT: Incomplete: need additional imaging evaluation, BI-RAD 0 RECOMMENDATION: Special view mammogram of the right breast. If lesion persists on supplemental views, image directed ultrasound is recommended. [facility] will attempt to contact patient to return for supplemental views and ultrasound if indicated.
== END | disposition home or self-care (01) ==
LOC: RADMAMWWP 14:25
PROVIDERS: ATTEND Internal Medicine
DX: Z12.31 Encounter for screening mammogram for malignant neoplasm of breast (principal)
CPT/HCPCS: 77063; 77067

== ENCOUNTER → 2019-05-01 | Outpatient (CLI) | payer MEDICARE ==
--- NOTE | 2019-05-02 11:08 | MM ---
Reason for exam: additional evaluation requested from abnormal screening. Last mammogram was performed less than 1 month ago. History: Patient is postmenopausal. Took hormonal contraceptives for 5 years. Physical Findings: Nurse did not find any significant physical abnormalities on exam. (nurse sonia). MG 3D Work Up W/Cad RT Spot compression MLO and ML view(s) were taken of the right breast. Prior study comparison: April 19, 2019, bilateral MG 3d screening mammo w/cad. July 12, 2017, bilateral MG 3d screening mammo w/cad. There are scattered fibroglandular densities. There are benign-appearing calcification in the right breast. The previously seen right breast abnormality resolves on additional views and appears as fibroglandular tissue compatible with summation. No suspicious abnormality. ASSESSMENT: Benign, BI-RAD 2 RECOMMENDATION: Routine screening mammogram of both breasts in 1 year. Patient was given the results on 05/01/19.
== END | disposition home or self-care (01) ==
LOC: RADMAMWWP 10:17
PROVIDERS: ATTEND Internal Medicine
DX: R92.8 Other abnormal and inconclusive findings on diagnostic imaging of breast (principal)
CPT/HCPCS: 77065; G0279; 77061

== ENCOUNTER → 2021-06-18 | Outpatient (CLI) | payer MEDICARE ==
--- NOTE | 2021-06-19 11:43 | MM ---
Reason for exam: screening (asymptomatic). Last mammogram was performed 2 years and 2 months ago. History: Patient is postmenopausal. Took hormonal contraceptives for 5 years. Physical Findings: A clinical breast exam by your physician is recommended on an annual basis and results should be correlated with mammographic findings. MG 3D Screening Mammo W/Cad Bilateral CC and MLO view(s) were taken. Prior study comparison: May 01, 2019, right breast MG 3d work up w/cad RT. April 19, 2019, bilateral MG 3d screening mammo w/cad. There are scattered fibroglandular densities. Benign appearing bilateral calcifications. There is chronic nodularity in the left breast, stable. No significant changes when compared with prior studies. ASSESSMENT: Benign, BI-RAD 2 RECOMMENDATION: Routine screening mammogram of both breasts in 1 year.
== END | disposition home or self-care (01) ==
LOC: RADMAMWWP 11:06
PROVIDERS: ATTEND Internal Medicine
DX: Z12.31 Encounter for screening mammogram for malignant neoplasm of breast (principal)
CPT/HCPCS: 77063; 77067